=== PATIENT | female | born 1935 | race Caucasian/White ===

== ENCOUNTER 2016-12-30 14:07 | Outpatient (CLI) | payer MEDICARE, OTHER ==
[2016-12-30 14:33] LABS: #Basophils 0.2 thou/uL (0.0-0.2); #Eosinphils 0.2 thou/uL (0.0-0.7); #Lymphocytes 1.9 thou/uL (1.20-3.40); #Monocytes 0.8 thou/uL (0.11-0.59); #Neutrophils 7.5 thou/uL (1.40-6.50); %Basophils 1.4 % (0.0-1.0); %Eosinophils 1.6 % (0.0-10.0); %Monocytes 7.5 % (0.0-10.0); Hematocrit 41.5 % (36.0-47.0); White Blood Cell (WBC) Count 10.6 thou/uL (4.8-10.8)
[2016-12-30 14:52] LABS: ALT (SGPT) 16 U/L (0-55); AST (SGOT) 15 U/L (5-34); Alkaline Phosphatase 53 U/L (40-150); Anion Gap 12 mmol/L (10-20); BUN (Urea Nitrogen) 20 mg/dL (9.8-20.1); Bilirubin, Total 0.4 mg/dL (0.2-1.2); Calc. Creatinine Clearance 0 mL/min (70-130); Calcium 9.2 mg/dL (7.8-10.44); Carbon Dioxide 27 mmol/L (23-31); Chloride 102 mmol/L (98-107); Estimated GFR-MDRD 66; Globulin 2.4 g/dL (2.4-3.5); LDL Cholesterol, Calculated 112 mg/dL; Protein, Total 6.6 g/dL (5.8-8.1)
== END 2016-12-30 14:08 ==
LOC: HPCALD 14:07
PROVIDERS: ATTEND Family Medicine
DX: E78.00 Pure hypercholesterolemia, unspecified (principal); F41.8 Other specified anxiety disorders; I10 Essential (primary) hypertension; Z79.899 Other long term (current) drug therapy
CPT/HCPCS: 36415; 80053; 80061; 82607; 84443; 85025

== ENCOUNTER 2017-06-28 14:44 | Outpatient (CLI) | payer MEDICARE, OTHER ==
[2017-06-28 15:14] LABS: Bilirubin Negative (Negative); Blood, Urine Trace (Negative); Clarity Slightly Cloudy (Clear); Glucose, Urine (Dipstick) Negative (Negative); Leukocyte Moderate (Negative); Nitrite Negative (Negative); Protein, Urine (Dipstick) Negative (Neg-Trace); Urobilinogen 0.2 mg/dL (0.2-1.0); pH, Urine 6.5 (5.0-9.0)
[2017-06-28 15:24] LABS: Anion Gap 12 mmol/L (10-20); BUN (Urea Nitrogen) 14 mg/dL (9.8-20.1); Calc. Creatinine Clearance 0 mL/min (70-130); Calcium 9.9 mg/dL (7.8-10.44); Carbon Dioxide 31 mmol/L (23-31); Chloride 99 mmol/L (98-107); Estimated GFR-MDRD 62; Glucose 103 mg/dL (83-110); Potassium 3.7 mmol/L (3.5-5.1); Sodium 138 mmol/L (136-145)
[2017-06-28 15:40] LABS: Bacteria/HPF 1+ HPF (None Seen); RBC/HPF 0-3 HPF (0-3); Squamous Epithelial 0-3 HPF (0-3)
== END 2017-06-28 14:45 | disposition home or self-care (01) ==
LOC: BURLAB 14:44
PROVIDERS: ATTEND Urology
DX: N20.0 Calculus of kidney (principal)
CPT/HCPCS: 36415; 80048; 81001; 87077; 87086

== ENCOUNTER → 2017-08-25 | Emergency (ER) | payer MEDICARE, OTHER ==
[~2017-08-25] MED LIST: Acetaminophen 325 MG TAB ONE; Nitroglycerin 2% Ointment 1 INCH/1 GM Packet ONE
[2017-08-25 17:53] LABS: #Basophils 0.1 thou/uL (0.0-0.2); #Eosinphils 0.2 thou/uL (0.0-0.7); #Lymphocytes 1.5 thou/uL (1.20-3.40); #Monocytes 1.1 thou/uL (0.11-0.59); #Neutrophils 9.4 thou/uL (1.40-6.50); %Basophils 1.1 % (0.0-1.0); %Eosinophils 1.5 % (0.0-10.0); %Lymphocytes 12.3 % (21.0-51.0); %Monocytes 8.6 % (0.0-10.0); %Neutrophils 76.5 % (42.0-75.0); Hemoglobin 13.8 g/dL (12.0-16.0); Mean Corpuscular HGB CONC 32.4 g/dL (32.0-36.0); Mean Corpuscular Hemoglobin 32.4 pg (27.0-31.0); Mean Platelet Volume 8.3 fL (7.4-10.4); Platelet Count 293 thou/uL (130-400); RBC Distribution Width 11.8 % (11.5-14.5); Red Blood Cell (RBC) Count 4.25 mill/uL (4.20-5.40); White Blood Cell (WBC) Count 12.3 thou/uL (4.8-10.8)
[2017-08-25 17:58] LABS: INR-International Normal Ratio 1.1; Prothrombin Time 13.9 SEC (12.0-14.7)
[2017-08-25 18:07] LABS: ALT (SGPT) 19 U/L (8-55); AST (SGOT) 17 U/L (5-34); Albumin 4.1 g/dL (3.4-4.8); Alkaline Phosphatase 54 U/L (40-150); Anion Gap 14 mmol/L (10-20); BUN (Urea Nitrogen) 14 mg/dL (9.8-20.1); Bilirubin, Total 0.4 mg/dL (0.2-1.2); Calc. Creatinine Clearance 0 mL/min (70-130); Calcium 9.3 mg/dL (7.8-10.44); Carbon Dioxide 27 mmol/L (23-31); Chloride 102 mmol/L (98-107); Estimated GFR-MDRD 58; Globulin 2.4 g/dL (2.4-3.5); Glucose 110 mg/dL (83-110); Potassium 4.2 mmol/L (3.5-5.1); Protein, Total 6.5 g/dL (6.0-8.3); Sodium 139 mmol/L (136-145)
[2017-08-25 18:09] LABS: CKMB 1.4 ng/mL (0-6.6); Troponin I Less than 0.010 ng/mL (< 0.028)
[2017-08-25 20:47] LABS: Troponin I Less than 0.010 ng/mL (< 0.028)
--- NOTE | 2017-08-25 21:46 | RAD ---
AP PORTABLE CHEST: 08/25/2017 1743 HOURS COMPARISON: Study from 07/21/2017 done at [facility]. FINDINGS: The heart is normal in size. There is no congestive change or pleural effusion. The infiltrative c hanges in the right base have largely resolved. There may be some very minor residual. The left ricky ng is clear. Faint calcification is seen in the aortic arch. There is an ovoid density overlying t he right pulmonary artery. I cannot tell if it is a lymph node, part of the artery, or other pathol ogy. It is smooth. IMPRESSION: 1. No definite acute findings. 2. Ovoid density in the right hilum may be superimposition of multiple shadows. The area should be watched on future films. POS: HOME
== END ==
LOC: BURERS 17:19
DX: R07.2 Precordial pain (principal); J44.9 Chronic obstructive pulmonary disease, unspecified; I48.91 Unspecified atrial fibrillation; I10 Essential (primary) hypertension; F41.9 Anxiety disorder, unspecified; Z79.01 Long term (current) use of anticoagulants; Z79.52 Long term (current) use of systemic steroids; Z79.899 Other long term (current) drug therapy
CPT/HCPCS: 71010; 80053; 82553; 84484; 85025; 85610; 85730; 93005

== ENCOUNTER 2017-11-16 15:12 | Inpatient (IN) | payer MEDICARE, OTHER ==
[2017-11-16 16:18] VITALS: BMI 25.3
[2017-11-16] MEDS ORDERED: PHENOL PO PRN (17:07)
[2017-11-16] MEDS ORDERED: Polyethylene Glycol 3350 17 GM Packet PO PRN (17:07)
[2017-11-16] MEDS ORDERED: Nitroglycerin 0.4 MG TAB (25 Tab Bottle) SL PRN (17:07)
[2017-11-16] MEDS ORDERED: Loratadine 10 MG TAB PO PRN (17:07)
[2017-11-16] MEDS ORDERED: ALPRAZolam 0.5 MG TAB PO PRN (17:07)
[2017-11-16] MEDS ORDERED: Acetaminophen 325 MG TAB PO PRN (17:07)
[2017-11-16] MEDS ORDERED: Albuterol Sulfate 1.25 MG/3 ML NEB NEB PRN (17:07)
[2017-11-16] MEDS ORDERED: Albuterol Sulfate 2.5 mg/3 ml Neb NEB PRN (17:07)
[2017-11-16] MEDS: Mometasone/Formoterol 60 PUFF AER INH SCH (18:35)
[2017-11-16] MEDS: Apixaban 5 MG TAB PO SCH (20:34)
[2017-11-16] MEDS: Nystatin 500,000 UNITS/5 ML UDCUP PO SCH (20:34)
[2017-11-16] MEDS: Docusate 100 MG CAP PO SCH (20:34)
[2017-11-16] MEDS: guaiFENesin ER 600 MG TAB PO SCH (20:35)
[2017-11-16] MEDS: Flecainide 50 MG TAB PO SCH (20:35)
[2017-11-16] MEDS: VERAPAMIL HCL 120 MG PO SCH (21:00)
[2017-11-16] MEDS ORDERED: Famotidine 20 MG TAB PO SCH (21:00)
[2017-11-16] MEDS ORDERED: Non-Formulary Item 1 EACH (Fluticasone/Salmeterol [Advair Diskus 500/50] 1 INH) IH SCH (21:00)
[2017-11-16] MEDS ORDERED: VERAPAMIL HCL 240 MG PO SCH (21:00)
[2017-11-17] MEDS: Calcium Carbonate 500 MG ChewTAB PO PRN ×2 (00:22→23:57)
[2017-11-17 00:40] LABS: CKMB 1.1 ng/mL (0-6.6); Troponin I Less than 0.010 ng/mL (< 0.028)
[2017-11-17] MEDS: Mometasone/Formoterol 60 PUFF AER INH SCH ×2 (06:05→19:04)
[2017-11-17] MEDS ORDERED: Albuterol Sulfate 1.25 MG/3 ML NEB NEB PRN (07:45)
[2017-11-17] MEDS: Nystatin 500,000 UNITS/5 ML UDCUP PO SCH ×4 (08:25→21:11)
[2017-11-17] MEDS: Furosemide 40 MG TAB PO SCH (08:26)
[2017-11-17] MEDS: guaiFENesin ER 600 MG TAB PO SCH ×2 (08:26→21:09)
[2017-11-17] MEDS: Aspirin 81 mg Enteric Coated Tablet PO SCH (08:27)
[2017-11-17] MEDS: Saccharomyces boulardii 250 MG CAP PO SCH (08:27)
[2017-11-17] MEDS: Flecainide 50 MG TAB PO SCH ×2 (08:27→21:11)
[2017-11-17] MEDS: Atorvastatin Calcium 10 MG TAB PO SCH (08:28)
[2017-11-17] MEDS: Multivit, Therapeutic 1 TAB PO SCH (08:28)
[2017-11-17] MEDS: Apixaban 5 MG TAB PO SCH ×2 (08:28→21:10)
[2017-11-17] MEDS: Famotidine 20 MG TAB PO SCH (08:28)
[2017-11-17] MEDS: predniSONE 20 MG TAB PO SCH (08:29)
[2017-11-17] MEDS: Spironolactone 25 MG TAB PO SCH (08:29)
[2017-11-17] MEDS: Docusate 100 MG CAP PO SCH ×3 (08:29→21:36)
[2017-11-17] MEDS: VERAPAMIL HCL 120 MG PO SCH ×2 (08:29→21:34)
[2017-11-17] MEDS ORDERED: Polyethylene Glycol 3350 17 GM Packet PO PRN (08:30)
[2017-11-17] MEDS: FLUNISOLIDE EA NARE SCH ×2 (08:33→21:34)
[2017-11-17] MEDS: Calcium Carbonate + Vit D 1 TAB PO SCH ×2 (08:34→17:15)
[2017-11-17] MEDS: Acetaminophen 325 MG TAB PO PRN (09:36)
[2017-11-17] MEDS: ALPRAZolam 0.5 MG TAB PO PRN (09:37)
[2017-11-17] MEDS: Milk Of Magnesia 30 ML UDCUP PO PRN (11:16)
[2017-11-17] MEDS: Cepastat Lozenges 1 LOZ PO PRN (15:33)
[2017-11-17] MEDS ORDERED: Furosemide 40 MG TAB PO SCH (21:45)
[2017-11-18] MEDS: Mometasone/Formoterol 60 PUFF AER INH SCH ×2 (06:30→17:26)
[2017-11-18 06:31] LABS: Hemoglobin 12.4 g/dL (12.0-16.0); Platelet Count 266 thou/uL (130-400)
[2017-11-18] MEDS: ALPRAZolam 0.5 MG TAB PO PRN ×2 (06:40→20:57)
[2017-11-18] MEDS: Calcium Carbonate + Vit D 1 TAB PO SCH ×3 (09:00→17:23)
[2017-11-18] MEDS: predniSONE 20 MG TAB PO SCH (09:01)
[2017-11-18] MEDS: guaiFENesin ER 600 MG TAB PO SCH ×2 (09:02→20:56)
[2017-11-18] MEDS: Multivit, Therapeutic 1 TAB PO SCH (09:03)
[2017-11-18] MEDS: Saccharomyces boulardii 250 MG CAP PO SCH (09:03)
[2017-11-18] MEDS: Docusate 100 MG CAP PO SCH ×2 (09:03→20:58)
[2017-11-18] MEDS: Aspirin 81 mg Enteric Coated Tablet PO SCH (09:05)
[2017-11-18] MEDS: Apixaban 5 MG TAB PO SCH ×2 (09:05→20:57)
[2017-11-18] MEDS: Famotidine 20 MG TAB PO SCH (09:05)
[2017-11-18] MEDS: Furosemide 40 MG TAB PO SCH (09:05)
[2017-11-18] MEDS: Atorvastatin Calcium 10 MG TAB PO SCH (09:06)
[2017-11-18] MEDS: Spironolactone 25 MG TAB PO SCH (09:06)
[2017-11-18] MEDS: Flecainide 50 MG TAB PO SCH ×2 (09:07→20:56)
[2017-11-18] MEDS: Nystatin 500,000 UNITS/5 ML UDCUP PO SCH ×4 (09:08→20:55)
[2017-11-18] MEDS: FLUNISOLIDE EA NARE SCH ×2 (09:09→20:57)
[2017-11-18] MEDS: VERAPAMIL HCL 120 MG PO SCH ×2 (09:10→20:57)
[2017-11-18] MEDS: Cepastat Lozenges 1 LOZ PO PRN (09:14)
[2017-11-18] MEDS: Acetaminophen 325 MG TAB PO PRN ×2 (09:19→13:12)
[2017-11-18] MEDS ORDERED: Lidocaine Viscous Sol 2% 15 ml UD Cup ONE (17:20)
[2017-11-18] MEDS: Lidocaine Viscous Sol 2% 15 ml UD Cup SSW PRN (17:27)
[2017-11-19] MEDS: Milk Of Magnesia 30 ML UDCUP PO PRN (00:15)
[2017-11-19] MEDS: diphenhydrAMINE 25 MG CAP PO PRN (02:16)
[2017-11-19] MEDS: Acetaminophen 325 MG TAB PO PRN ×2 (02:16→09:20)
[2017-11-19] MEDS: Mometasone/Formoterol 60 PUFF AER INH SCH ×2 (06:16→18:08)
[2017-11-19] MEDS: Famotidine 20 MG TAB PO SCH (06:39)
[2017-11-19] MEDS: ALPRAZolam 0.5 MG TAB PO PRN (06:39)
[2017-11-19] MEDS: guaiFENesin ER 600 MG TAB PO SCH ×2 (09:06→21:39)
[2017-11-19] MEDS: Apixaban 5 MG TAB PO SCH ×2 (09:07→21:38)
[2017-11-19] MEDS: Spironolactone 25 MG TAB PO SCH (09:07)
[2017-11-19] MEDS: Aspirin 81 mg Enteric Coated Tablet PO SCH (09:07)
[2017-11-19] MEDS: Docusate 100 MG CAP PO SCH ×2 (09:07→21:38)
[2017-11-19] MEDS: Furosemide 40 MG TAB PO SCH (09:07)
[2017-11-19] MEDS: Atorvastatin Calcium 10 MG TAB PO SCH (09:07)
[2017-11-19] MEDS: Multivit, Therapeutic 1 TAB PO SCH (09:07)
[2017-11-19] MEDS: predniSONE 20 MG TAB PO SCH (09:07)
[2017-11-19] MEDS: Flecainide 50 MG TAB PO SCH ×2 (09:07→21:39)
[2017-11-19] MEDS: Saccharomyces boulardii 250 MG CAP PO SCH (09:09)
[2017-11-19] MEDS: Nystatin 500,000 UNITS/5 ML UDCUP PO SCH ×4 (09:09→21:39)
[2017-11-19] MEDS: FLUNISOLIDE EA NARE SCH ×2 (09:09→21:38)
[2017-11-19] MEDS: Calcium Carbonate + Vit D 1 TAB PO SCH ×2 (09:11→16:48)
[2017-11-19] MEDS: VERAPAMIL HCL 120 MG PO SCH ×2 (09:11→21:38)
[2017-11-19] MEDS ORDERED: Lidocaine Viscous Sol 2% 15 ml UD Cup ONE ×2 (12:49→18:12)
[2017-11-19] MEDS: Lidocaine Viscous Sol 2% 15 ml UD Cup SSW PRN ×2 (12:52→18:14)
[2017-11-20] MEDS: diphenhydrAMINE 25 MG CAP PO PRN (03:18)
[2017-11-20] MEDS: Acetaminophen 325 MG TAB PO PRN ×3 (03:18→21:11)
[2017-11-20 05:39] LABS: Platelet Count 225 thou/uL (130-400)
[2017-11-20] MEDS: Mometasone/Formoterol 60 PUFF AER INH SCH ×2 (06:37→18:03)
[2017-11-20] MEDS: ALPRAZolam 0.5 MG TAB PO PRN ×2 (06:37→22:55)
[2017-11-20] MEDS: Famotidine 20 MG TAB PO SCH (06:38)
[2017-11-20] MEDS: predniSONE 20 MG TAB PO SCH (09:09)
[2017-11-20] MEDS: Calcium Carbonate + Vit D 1 TAB PO SCH ×2 (09:09→15:24)
[2017-11-20] MEDS: Aspirin 81 mg Enteric Coated Tablet PO SCH (09:10)
[2017-11-20] MEDS: Atorvastatin Calcium 10 MG TAB PO SCH (09:10)
[2017-11-20] MEDS: Apixaban 5 MG TAB PO SCH ×2 (09:10→21:03)
[2017-11-20] MEDS: Docusate 100 MG CAP PO SCH ×2 (09:10→21:03)
[2017-11-20] MEDS: Furosemide 40 MG TAB PO SCH (09:10)
[2017-11-20] MEDS: Flecainide 50 MG TAB PO SCH ×2 (09:10→21:03)
[2017-11-20] MEDS: guaiFENesin ER 600 MG TAB PO SCH ×2 (09:10→21:02)
[2017-11-20] MEDS: Spironolactone 25 MG TAB PO SCH (09:10)
[2017-11-20] MEDS: Multivit, Therapeutic 1 TAB PO SCH (09:10)
[2017-11-20] MEDS: Saccharomyces boulardii 250 MG CAP PO SCH (09:10)
[2017-11-20] MEDS: VERAPAMIL HCL 120 MG PO SCH ×2 (09:11→21:01)
[2017-11-20] MEDS: FLUNISOLIDE EA NARE SCH ×2 (09:12→21:02)
[2017-11-20] MEDS: Nystatin 500,000 UNITS/5 ML UDCUP PO SCH ×4 (09:12→21:02)
[2017-11-20] MEDS ORDERED: Lidocaine Viscous Sol 2% 15 ml UD Cup ONE (22:53)
[2017-11-20] MEDS: Lidocaine Viscous Sol 2% 15 ml UD Cup SSW PRN (22:54)
[2017-11-21] MEDS: Calcium Carbonate 500 MG ChewTAB PO PRN (01:36)
[2017-11-21] MEDS: diphenhydrAMINE 25 MG CAP PO PRN (02:04)
[2017-11-21] MEDS: Mometasone/Formoterol 60 PUFF AER INH SCH (06:52)
[2017-11-21 07:06] VITALS: BP 135/60; TEMP 98.3
[2017-11-21] MEDS: Calcium Carbonate + Vit D 1 TAB PO SCH ×2 (08:29→18:06)
[2017-11-21] MEDS: predniSONE 20 MG TAB PO SCH (08:52)
[2017-11-21] MEDS: guaiFENesin ER 600 MG TAB PO SCH (08:53)
[2017-11-21] MEDS: Flecainide 50 MG TAB PO SCH (08:53)
[2017-11-21] MEDS: Multivit, Therapeutic 1 TAB PO SCH (08:53)
[2017-11-21] MEDS: Furosemide 40 MG TAB PO SCH (08:53)
[2017-11-21] MEDS: Docusate 100 MG CAP PO SCH (08:53)
[2017-11-21] MEDS: Apixaban 5 MG TAB PO SCH (08:53)
[2017-11-21] MEDS: Spironolactone 25 MG TAB PO SCH (08:54)
[2017-11-21] MEDS: Nystatin 500,000 UNITS/5 ML UDCUP PO SCH ×3 (08:54→18:06)
[2017-11-21] MEDS: Saccharomyces boulardii 250 MG CAP PO SCH (08:55)
[2017-11-21] MEDS: Acetaminophen 325 MG TAB PO PRN (08:55)
[2017-11-21] MEDS: VERAPAMIL HCL 120 MG PO SCH (08:56)
[2017-11-21] MEDS: FLUNISOLIDE EA NARE SCH (08:56)
[2017-11-21] MEDS: Aspirin 81 mg Enteric Coated Tablet PO SCH ×2 (10:09→11:58)
[2017-11-21] MEDS: Atorvastatin Calcium 10 MG TAB PO SCH ×2 (10:09→11:58)
[2017-11-21] MEDS: Famotidine 20 MG TAB PO SCH ×2 (10:09→11:44)
[2017-11-21] MEDS ORDERED: Lidocaine Viscous Sol 2% 15 ml UD Cup ONE (11:47)
[2017-11-21] MEDS: Lidocaine Viscous Sol 2% 15 ml UD Cup SSW PRN (11:49)
--- NOTE | 2017-11-21 13:42 | RAD ---
PORTABLE CHEST: Date: 11/21/17 An AP portable film at 1059 hours is compared with the 11/13/17 study. FINDINGS: The heart size is unchanged. Calcific changes are seen in the aortic arch as usual. There is no vascu lar congestion, edema, or pleural effusion. There is some accentuation of the basilar markings, but a ny changes since the 11/13/17 study are minimal. IMPRESSION: Minimal accentuation of basilar markings. Not dramatically different than on 11/13/17. POS: HOME
--- NOTE | 2017-11-22 16:10 | DIS ---
DATE OF ADMISSION: 11/16/2017 DATE OF DISCHARGE: 11/21/2017 ADMISSION DIAGNOSES: Chronic obstructive pulmonary disease exacerbation, physical deconditioning, hypertension, paroxysmal atrial fibrillation, anxiety, thrush, and edema. PROCEDURES: Chest x-ray on 11/21/2017 showed minimal accentuation of basilar markings, not dramatically different than on 11/13/2017. HOSPITAL COURSE: An 82-year-old female with oxygen dependent COPD, was initially admitted at [facility] in [place] secondary to exacerbation of her COPD secondary to influenza. The patient was successfully treated for this; however, during her stay, developed physical deconditioning and thus it was arranged for her to transfer out to [facility] for physical therapy and occupational therapy. Prior to her departure , she was evaluated by her assistant statistician, Dr. Luu, who had increased her daily prednisone with instructions for 40 mg p.o. daily x4 to 5 days, followed by 20 mg daily until her followup within 2-3 weeks. The patient's medications were continued as usual and as advised during her stay. Her physical conditioning improved and she satisfactorily met the goals set fourth by Physical Therapy and Occupational Therapy. Her respiratory status remained near her baseline during her stay. She was agreeable to setting up Home Health for continued care upon her discharge. DISPOSITION: The patient will discharge to her home with further care via [facility] and may follow up with myself and Dr. Luu as scheduled. DISCHARGE MEDICATIONS: One new medication is viscous lidocaine for oral pain and there has been an adjustment on her prednisone to 20 mg p.o. daily until she follows up with Dr. Luu. Her other usual medications will be continued, which include spironolactone 25 mg p.o. daily, Florastor 250 mg p.o. daily, MiraLax 17 grams p.o. daily p.r.n., verapamil 120 mg p.o. b.i.d., Nystatin swish and swallow, Nitrostat 0.4 mg sublingual every 5 minutes p.r.n., daily multivitamin, Advair 1 puff b.i.d., Lasix 40 mg p.o. daily, flecainide 75 mg p.o. b.i.d., calcium, vitamin D, Lipitor 10 mg p.o. at bedtime, aspirin 81 mg p.o. daily, Eliquis 5 mg p.o. b.i.d., Xanax 0.25 mg p.o. b.i.d. p.r.n., DuoNebs q.4 hours p.r.n. MTDD
== END 2017-11-21 17:30 | disposition home health service (06) | DRG 192 ==
LOC: BURMED 15:20
PROVIDERS: ADMIT Family Medicine; ATTEND Family Medicine
DX: J44.1 Chronic obstructive pulmonary disease with (acute) exacerbation (principal); I48.0 Paroxysmal atrial fibrillation; Z99.81 Dependence on supplemental oxygen; B37.9 Candidiasis, unspecified; F41.9 Anxiety disorder, unspecified; I10 Essential (primary) hypertension; G47.00 Insomnia, unspecified; K21.9 Gastro-esophageal reflux disease without esophagitis; R60.9 Edema, unspecified; Z87.891 Personal history of nicotine dependence; Z90.49 Acquired absence of other specified parts of digestive tract
CPT/HCPCS: 36415; 71045; 82553; 82565; 84484; 85014; 85018; 85049; 94664; G8978-GP-CJ; G8979-GP-CI; G8987-GO-CI; G8988-GO-CI; G8989-GO-CI; J7506; J7620

== ENCOUNTER 2017-12-06 13:43 | Inpatient (IN) | payer MEDICARE, OTHER ==
[2017-12-06] MEDS ORDERED: Calcium Carbonate 500 MG ChewTAB PO PRN (17:02)
[2017-12-06] MEDS ORDERED: Milk Of Magnesia 30 ML UDCUP PO PRN (17:02)
[2017-12-06] MEDS ORDERED: Loratadine 10 MG TAB PO PRN (17:02)
[2017-12-06] MEDS ORDERED: Cepastat Lozenges 1 LOZ PO PRN (17:02)
[2017-12-06] MEDS ORDERED: Nitroglycerin 0.4 MG TAB (25 Tab Bottle) SL PRN (17:02)
[2017-12-06] MEDS ORDERED: predniSONE 20 MG TAB PO SCH (17:30)
[2017-12-06] MEDS ORDERED: Furosemide 20 MG TAB PO SCH (17:30)
[2017-12-06 17:56] VITALS: BMI 26.3
[2017-12-06] MEDS: ALPRAZolam 0.5 MG TAB PO PRN (18:45)
[2017-12-06] MEDS: Mometasone/Formoterol 60 PUFF AER INH SCH ×2 (18:47→21:55)
[2017-12-06] MEDS ORDERED: Non-Formulary Item 1 EACH (Fluticasone/Salmeterol [Advair Diskus 500/50] 1 INH) IH SCH (21:00)
[2017-12-06] MEDS ORDERED: PHENOL PO PRN (21:00)
[2017-12-06] MEDS ORDERED: Lidocaine Viscous Sol 2% 15 ml UD Cup ONE (21:44)
[2017-12-06] MEDS: Apixaban 5 MG TAB PO SCH (21:51)
[2017-12-06] MEDS: Famotidine 20 MG TAB PO SCH (21:51)
[2017-12-06] MEDS: Flecainide 50 MG TAB PO SCH (21:52)
[2017-12-06] MEDS: guaiFENesin ER 600 MG TAB PO SCH (21:53)
[2017-12-06] MEDS: Nystatin 500,000 UNITS/5 ML UDCUP PO SCH (21:54)
[2017-12-06] MEDS: Albuterol Sulfate 1.25 MG/3 ML NEB NEB SCH (22:03)
[2017-12-06] MEDS ORDERED: Cefuroxime 500 MG TAB ONE (22:13)
[2017-12-06] MEDS: Cefuroxime 500 MG TAB PO SCH (22:15)
[2017-12-06] MEDS: VERAPAMIL HCL 240 MG PO SCH (22:17)
[2017-12-06] MEDS: FLUNISOLIDE EA NARE SCH (22:18)
[2017-12-07] MEDS: Albuterol Sulfate 1.25 MG/3 ML NEB NEB SCH ×6 (01:03→21:47)
[2017-12-07] MEDS: ALPRAZolam 0.5 MG TAB PO PRN ×2 (01:18→21:50)
[2017-12-07] MEDS: diphenhydrAMINE 25 MG CAP PO PRN (01:18)
[2017-12-07] MEDS: Acetaminophen 325 MG TAB PO PRN (01:20)
[2017-12-07] MEDS: Lidocaine Viscous Sol 2% 15 ml UD Cup SSW PRN (01:38)
[2017-12-07 05:11] LABS: Hemoglobin 10.7 g/dL (12.0-16.0); Platelet Count 581 thou/uL (130-400)
[2017-12-07] MEDS: Mometasone/Formoterol 60 PUFF AER INH SCH ×4 (05:34→21:39)
[2017-12-07] MEDS ORDERED: Non-Formulary Item 1 EACH (Ranitidine Hcl [Zantac 75] 75 MG) PO SCH (09:00)
[2017-12-07] MEDS: Aspirin 81 mg Enteric Coated Tablet PO SCH (09:38)
[2017-12-07] MEDS: predniSONE 20 MG TAB PO SCH (09:38)
[2017-12-07] MEDS: Spironolactone 25 MG TAB PO SCH (09:39)
[2017-12-07] MEDS: Calcium Carbonate + Vit D 1 TAB PO SCH ×2 (09:39→17:38)
[2017-12-07] MEDS: Cefuroxime 500 MG TAB PO SCH ×2 (09:40→21:36)
[2017-12-07] MEDS: Furosemide 40 MG TAB PO SCH (09:49)
[2017-12-07] MEDS: Flecainide 50 MG TAB PO SCH ×2 (09:49→21:34)
[2017-12-07] MEDS: Nystatin 500,000 UNITS/5 ML UDCUP PO SCH ×4 (09:49→21:34)
[2017-12-07] MEDS: guaiFENesin ER 600 MG TAB PO SCH ×2 (09:49→21:37)
[2017-12-07] MEDS: Multivit, Therapeutic 1 TAB PO SCH (09:50)
[2017-12-07] MEDS: Atorvastatin Calcium 10 MG TAB PO SCH (09:50)
[2017-12-07] MEDS: Apixaban 5 MG TAB PO SCH ×2 (09:50→21:34)
[2017-12-07] MEDS: Famotidine 20 MG TAB PO SCH ×2 (09:51→21:33)
[2017-12-07] MEDS: Saccharomyces boulardii 250 MG CAP PO SCH (09:51)
[2017-12-07] MEDS: FLUNISOLIDE EA NARE SCH ×2 (09:59→21:38)
[2017-12-07] MEDS ORDERED: Cefuroxime 500 MG TAB ONE (21:25)
[2017-12-07] MEDS: VERAPAMIL HCL 240 MG PO SCH (21:38)
[2017-12-07] MEDS ORDERED: Albuterol Sulfate 1.25 MG/3 ML NEB ONE (21:47)
[2017-12-08] MEDS: Acetaminophen 325 MG TAB PO PRN (00:52)
[2017-12-08] MEDS: diphenhydrAMINE 25 MG CAP PO PRN (00:52)
[2017-12-08] MEDS: Albuterol Sulfate 1.25 MG/3 ML NEB NEB SCH ×6 (00:55→21:01)
[2017-12-08] MEDS: Mometasone/Formoterol 60 PUFF AER INH SCH ×4 (05:59→20:47)
[2017-12-08] MEDS: Multivit, Therapeutic 1 TAB PO SCH (08:38)
[2017-12-08] MEDS: Famotidine 20 MG TAB PO SCH ×2 (08:38→20:45)
[2017-12-08] MEDS: Nystatin 500,000 UNITS/5 ML UDCUP PO SCH ×4 (08:38→20:44)
[2017-12-08] MEDS: Flecainide 50 MG TAB PO SCH ×2 (08:39→20:46)
[2017-12-08] MEDS: guaiFENesin ER 600 MG TAB PO SCH ×2 (08:39→20:45)
[2017-12-08] MEDS: Atorvastatin Calcium 10 MG TAB PO SCH (08:40)
[2017-12-08] MEDS: Aspirin 81 mg Enteric Coated Tablet PO SCH (08:40)
[2017-12-08] MEDS: Saccharomyces boulardii 250 MG CAP PO SCH (08:40)
[2017-12-08] MEDS: predniSONE 20 MG TAB PO SCH (08:40)
[2017-12-08] MEDS: Spironolactone 25 MG TAB PO SCH (08:41)
[2017-12-08] MEDS: Apixaban 5 MG TAB PO SCH ×2 (08:42→20:44)
[2017-12-08] MEDS: Calcium Carbonate + Vit D 1 TAB PO SCH ×2 (08:43→18:19)
[2017-12-08] MEDS: Furosemide 40 MG TAB PO SCH (08:43)
[2017-12-08] MEDS: FLUNISOLIDE EA NARE SCH ×2 (08:47→21:00)
[2017-12-08] MEDS: Cefuroxime 500 MG TAB PO SCH ×2 (08:51→21:11)
[2017-12-08] MEDS ORDERED: Cefuroxime 500 MG TAB ONE (09:19)
[2017-12-08] MEDS: VERAPAMIL HCL 240 MG PO SCH (20:58)
[2017-12-09] MEDS: Albuterol Sulfate 1.25 MG/3 ML NEB NEB SCH ×6 (00:25→20:52)
[2017-12-09] MEDS: diphenhydrAMINE 25 MG CAP PO PRN (00:28)
[2017-12-09] MEDS: ALPRAZolam 0.5 MG TAB PO PRN ×2 (00:29→11:59)
[2017-12-09] MEDS: Acetaminophen 325 MG TAB PO PRN ×2 (00:30→11:59)
[2017-12-09] MEDS: Mometasone/Formoterol 60 PUFF AER INH SCH ×4 (05:09→23:09)
[2017-12-09 07:09] LABS: Hemoglobin 10.3 g/dL (12.0-16.0); Platelet Count 433 thou/uL (130-400)
[2017-12-09] MEDS: Nystatin 500,000 UNITS/5 ML UDCUP PO SCH ×4 (09:12→20:46)
[2017-12-09] MEDS: guaiFENesin ER 600 MG TAB PO SCH ×2 (09:12→20:45)
[2017-12-09] MEDS: Famotidine 20 MG TAB PO SCH ×2 (09:13→20:42)
[2017-12-09] MEDS: Multivit, Therapeutic 1 TAB PO SCH (09:13)
[2017-12-09] MEDS: Flecainide 50 MG TAB PO SCH ×2 (09:14→20:42)
[2017-12-09] MEDS: Furosemide 40 MG TAB PO SCH (09:15)
[2017-12-09] MEDS: Aspirin 81 mg Enteric Coated Tablet PO SCH (09:15)
[2017-12-09] MEDS: Calcium Carbonate + Vit D 1 TAB PO SCH ×2 (09:15→18:27)
[2017-12-09] MEDS: Spironolactone 25 MG TAB PO SCH (09:16)
[2017-12-09] MEDS: predniSONE 20 MG TAB PO SCH (09:16)
[2017-12-09] MEDS: Saccharomyces boulardii 250 MG CAP PO SCH (09:16)
[2017-12-09] MEDS: Atorvastatin Calcium 10 MG TAB PO SCH (09:16)
[2017-12-09] MEDS: Apixaban 5 MG TAB PO SCH ×2 (09:16→20:46)
[2017-12-09] MEDS: FLUNISOLIDE EA NARE SCH ×2 (09:22→23:06)
[2017-12-09] MEDS: Cefuroxime 500 MG TAB PO SCH ×2 (09:31→20:44)
[2017-12-09] MEDS: VERAPAMIL HCL 240 MG PO SCH (23:07)
[2017-12-10] MEDS: Albuterol Sulfate 1.25 MG/3 ML NEB NEB SCH ×6 (01:48→20:27)
[2017-12-10] MEDS: Acetaminophen 325 MG TAB PO PRN ×2 (02:06→11:54)
[2017-12-10] MEDS: ALPRAZolam 0.5 MG TAB PO PRN ×2 (02:06→08:22)
[2017-12-10] MEDS: diphenhydrAMINE 25 MG CAP PO PRN (02:06)
[2017-12-10] MEDS: Mometasone/Formoterol 60 PUFF AER INH SCH ×4 (05:56→20:18)
[2017-12-10] MEDS: Famotidine 20 MG TAB PO SCH ×2 (08:27→20:23)
[2017-12-10] MEDS: Aspirin 81 mg Enteric Coated Tablet PO SCH (08:29)
[2017-12-10] MEDS: Multivit, Therapeutic 1 TAB PO SCH (08:29)
[2017-12-10] MEDS: Calcium Carbonate + Vit D 1 TAB PO SCH ×2 (08:29→17:10)
[2017-12-10] MEDS: Saccharomyces boulardii 250 MG CAP PO SCH (08:30)
[2017-12-10] MEDS: predniSONE 20 MG TAB PO SCH (08:34)
[2017-12-10] MEDS: Apixaban 5 MG TAB PO SCH ×2 (08:36→20:23)
[2017-12-10] MEDS: Spironolactone 25 MG TAB PO SCH (08:36)
[2017-12-10] MEDS: Furosemide 40 MG TAB PO SCH (08:36)
[2017-12-10] MEDS: Atorvastatin Calcium 10 MG TAB PO SCH (08:36)
[2017-12-10] MEDS: guaiFENesin ER 600 MG TAB PO SCH ×2 (08:36→20:23)
[2017-12-10] MEDS: Flecainide 50 MG TAB PO SCH ×2 (08:37→20:23)
[2017-12-10] MEDS: Cefuroxime 500 MG TAB PO SCH ×2 (08:38→20:24)
[2017-12-10] MEDS: Nystatin 500,000 UNITS/5 ML UDCUP PO SCH ×4 (08:40→20:22)
[2017-12-10] MEDS: FLUNISOLIDE EA NARE SCH ×2 (08:41→20:18)
[2017-12-10] MEDS: VERAPAMIL HCL 240 MG PO SCH (20:24)
[2017-12-10] MEDS ORDERED: Lidocaine Viscous Sol 2% 15 ml UD Cup ONE (20:55)
[2017-12-10] MEDS: Lidocaine Viscous Sol 2% 15 ml UD Cup SSW PRN (20:57)
[2017-12-11] MEDS: Albuterol Sulfate 1.25 MG/3 ML NEB NEB SCH ×6 (00:43→21:04)
[2017-12-11] MEDS: diphenhydrAMINE 25 MG CAP PO PRN (00:44)
[2017-12-11] MEDS: ALPRAZolam 0.5 MG TAB PO PRN ×2 (00:45→10:08)
[2017-12-11] MEDS: Acetaminophen 325 MG TAB PO PRN ×2 (00:45→11:17)
[2017-12-11] MEDS: Mometasone/Formoterol 60 PUFF AER INH SCH ×4 (05:52→20:54)
[2017-12-11 06:04] LABS: Hemoglobin 9.6 g/dL (12.0-16.0); Platelet Count 399 thou/uL (130-400)
[2017-12-11] MEDS: Cefuroxime 500 MG TAB PO SCH ×2 (09:30→20:59)
[2017-12-11] MEDS: Furosemide 40 MG TAB PO SCH (09:33)
[2017-12-11] MEDS: predniSONE 20 MG TAB PO SCH (09:34)
[2017-12-11] MEDS: Saccharomyces boulardii 250 MG CAP PO SCH (09:34)
[2017-12-11] MEDS: Nystatin 500,000 UNITS/5 ML UDCUP PO SCH ×4 (09:34→21:00)
[2017-12-11] MEDS: Multivit, Therapeutic 1 TAB PO SCH (09:35)
[2017-12-11] MEDS: guaiFENesin ER 600 MG TAB PO SCH ×2 (09:35→20:57)
[2017-12-11] MEDS: Spironolactone 25 MG TAB PO SCH (09:36)
[2017-12-11] MEDS: Atorvastatin Calcium 10 MG TAB PO SCH (09:36)
[2017-12-11] MEDS: Apixaban 5 MG TAB PO SCH ×2 (09:37→20:58)
[2017-12-11] MEDS: Aspirin 81 mg Enteric Coated Tablet PO SCH (09:37)
[2017-12-11] MEDS: Flecainide 50 MG TAB PO SCH ×2 (09:38→20:58)
[2017-12-11] MEDS: FLUNISOLIDE EA NARE SCH ×2 (09:40→21:00)
[2017-12-11] MEDS: Calcium Carbonate + Vit D 1 TAB PO SCH ×2 (09:40→17:14)
[2017-12-11] MEDS: Famotidine 20 MG TAB PO SCH ×2 (09:42→20:58)
[2017-12-11] MEDS: Docusate 100 MG CAP PO SCH (20:57)
[2017-12-11] MEDS: VERAPAMIL HCL 240 MG PO SCH (21:00)
[2017-12-12] MEDS: Albuterol Sulfate 1.25 MG/3 ML NEB NEB SCH ×6 (00:39→21:16)
[2017-12-12] MEDS: diphenhydrAMINE 25 MG CAP PO PRN (00:40)
[2017-12-12] MEDS: Acetaminophen 325 MG TAB PO PRN (00:40)
[2017-12-12] MEDS: ALPRAZolam 0.5 MG TAB PO PRN ×2 (00:40→10:29)
[2017-12-12] MEDS: Mometasone/Formoterol 60 PUFF AER INH SCH ×4 (05:54→21:06)
[2017-12-12] MEDS: Famotidine 20 MG TAB PO SCH ×2 (10:31→21:14)
[2017-12-12] MEDS: Saccharomyces boulardii 250 MG CAP PO SCH (10:48)
[2017-12-12] MEDS: Atorvastatin Calcium 10 MG TAB PO SCH (10:48)
[2017-12-12] MEDS: predniSONE 20 MG TAB PO SCH (10:49)
[2017-12-12] MEDS: Nystatin 500,000 UNITS/5 ML UDCUP PO SCH ×4 (10:49→21:11)
[2017-12-12] MEDS: Furosemide 40 MG TAB PO SCH (10:49)
[2017-12-12] MEDS: FLUNISOLIDE EA NARE SCH ×3 (10:50→21:10)
[2017-12-12] MEDS: Calcium Carbonate + Vit D 1 TAB PO SCH ×2 (10:51→17:38)
[2017-12-12] MEDS: Cefuroxime 500 MG TAB PO SCH ×2 (10:52→21:09)
[2017-12-12] MEDS: Apixaban 5 MG TAB PO SCH ×2 (10:52→21:15)
[2017-12-12] MEDS: Aspirin 81 mg Enteric Coated Tablet PO SCH (10:52)
[2017-12-12] MEDS: Multivit, Therapeutic 1 TAB PO SCH (10:53)
[2017-12-12] MEDS: Docusate 100 MG CAP PO SCH ×2 (10:53→21:12)
[2017-12-12] MEDS: Flecainide 50 MG TAB PO SCH ×2 (10:54→21:13)
[2017-12-12] MEDS: Spironolactone 25 MG TAB PO SCH (10:54)
[2017-12-12] MEDS: guaiFENesin ER 600 MG TAB PO SCH ×2 (10:55→21:12)
[2017-12-12] MEDS: VERAPAMIL HCL 240 MG PO SCH (21:10)
[2017-12-13] MEDS: Albuterol Sulfate 1.25 MG/3 ML NEB NEB SCH ×6 (01:22→20:50)
[2017-12-13] MEDS: Acetaminophen 325 MG TAB PO PRN ×2 (01:49→21:32)
[2017-12-13] MEDS: ALPRAZolam 0.5 MG TAB PO PRN ×3 (01:50→21:01)
[2017-12-13] MEDS: diphenhydrAMINE 25 MG CAP PO PRN ×2 (01:50→21:33)
[2017-12-13] MEDS: Mometasone/Formoterol 60 PUFF AER INH SCH ×3 (06:03→17:24)
[2017-12-13 06:43] LABS: Hemoglobin 9.2 g/dL (12.0-16.0); Platelet Count 368 thou/uL (130-400)
--- NOTE | 2017-12-13 07:44 | RAD ---
CHEST 2 VIEWS: Date: 12/13/17 Comparison is made with the 11/30/17 study. FINDINGS: There is still infiltrate in the right upper lobe and the lingula. A small amount of infiltrate is se en in the right base. While it has changed over time slightly, the changes are not dramatic. In gener al, I would say there is a little more infiltrate in the right lower lobe and the base of the right u pper lobe than before. Lingular findings are about the same. The left upper lobe is otherwise clear. There are no effusions or congestive changes. The heart size is within normal limits. Calcification i s seen in the aortic arch. IMPRESSION: Infiltrative findings in the right upper and right lower lobes that may be slightly more than in [place]. The changes over time are slight, however. POS: HOME
[2017-12-13 09:56] LABS: Hemoglobin 9.2 g/dL (12.0-16.0); Mean Corpuscular HGB CONC 33.8 g/dL (32.0-36.0); Mean Corpuscular Hemoglobin 31.5 pg (27.0-31.0); Mean Platelet Volume 5.7 fL (7.4-10.4); Platelet Count 368 thou/uL (130-400); Red Blood Cell (RBC) Count 2.91 mill/uL (4.20-5.40)
[2017-12-13 11:13] LABS: Band 4 % (5-11); Eosinophils 1 % (0-10); Lymphocytes 3 % (21-51); MDiff Complete? YES; Neutrophil 92 % (42-75); PLT Morphology Comment Appears Adequate; RBC Morphology Normal
[2017-12-13] MEDS: Calcium Carbonate + Vit D 1 TAB PO SCH ×2 (11:18→17:23)
[2017-12-13] MEDS: Famotidine 20 MG TAB PO SCH ×2 (11:19→20:57)
[2017-12-13] MEDS: Spironolactone 25 MG TAB PO SCH (11:20)
[2017-12-13] MEDS: Flecainide 50 MG TAB PO SCH ×2 (11:20→20:53)
[2017-12-13] MEDS: Multivit, Therapeutic 1 TAB PO SCH (11:20)
[2017-12-13] MEDS: predniSONE 20 MG TAB PO SCH (11:22)
[2017-12-13] MEDS: Saccharomyces boulardii 250 MG CAP PO SCH (11:22)
[2017-12-13] MEDS: guaiFENesin ER 600 MG TAB PO SCH ×2 (11:22→20:54)
[2017-12-13] MEDS: Aspirin 81 mg Enteric Coated Tablet PO SCH (11:23)
[2017-12-13] MEDS: Docusate 100 MG CAP PO SCH ×2 (11:23→20:55)
[2017-12-13] MEDS: Apixaban 5 MG TAB PO SCH ×2 (11:23→20:58)
[2017-12-13] MEDS: Furosemide 40 MG TAB PO SCH (11:24)
[2017-12-13] MEDS: Cefuroxime 500 MG TAB PO SCH ×2 (11:24→20:59)
[2017-12-13] MEDS: Atorvastatin Calcium 10 MG TAB PO SCH (11:25)
[2017-12-13] MEDS: FLUNISOLIDE EA NARE SCH ×2 (11:28→21:05)
[2017-12-13] MEDS: Nystatin 500,000 UNITS/5 ML UDCUP PO SCH ×4 (11:28→21:02)
[2017-12-13] MEDS ORDERED: Cefuroxime 500 MG TAB ONE (20:35)
[2017-12-13] MEDS: valACYclovir 500 MG TAB PO SCH (20:45)
[2017-12-13] MEDS ORDERED: Doxycycline Hyclate 100 MG TAB PO SCH (21:00)
[2017-12-13] MEDS: VERAPAMIL HCL 240 MG PO SCH (21:04)
[2017-12-14] MEDS: Albuterol Sulfate 1.25 MG/3 ML NEB NEB SCH ×3 (01:28→08:51)
[2017-12-14 05:48] VITALS: BP 151/65; TEMP 97.7
[2017-12-14 05:52] LABS: #Basophils 0.1 thou/uL (0.0-0.2); #Lymphocytes 1.5 thou/uL (1.20-3.40); #Monocytes 1.2 thou/uL (0.11-0.59); #Neutrophils 21.4 thou/uL (1.40-6.50); %Basophils 0.6 % (0.0-1.0); %Eosinophils 0.2 % (0.0-10.0); %Lymphocytes 6.2 % (21.0-51.0); %Monocytes 4.8 % (0.0-10.0); %Neutrophils 88.3 % (42.0-75.0); Hemoglobin 9.6 g/dL (12.0-16.0); Mean Corpuscular HGB CONC 35.1 g/dL (32.0-36.0); Mean Corpuscular Hemoglobin 32.9 pg (27.0-31.0); Mean Corpuscular Volume 93.7 fl (81.0-99.0); Mean Platelet Volume 6.2 fL (7.4-10.4); Platelet Count 382 thou/uL (130-400); RBC Distribution Width 11.8 % (11.5-14.5); Red Blood Cell (RBC) Count 2.93 mill/uL (4.20-5.40); White Blood Cell (WBC) Count 24.2 thou/uL (4.8-10.8)
[2017-12-14 06:13] LABS: ALT (SGPT) 55 U/L (8-55); AST (SGOT) 27 U/L (5-34); Albumin 2.7 g/dL (3.4-4.8); Alkaline Phosphatase 61 U/L (40-150); Anion Gap 15 mmol/L (10-20); BUN (Urea Nitrogen) 23 mg/dL (9.8-20.1); Bilirubin, Total 0.2 mg/dL (0.2-1.2); Calc. Creatinine Clearance 71 mL/min (70-130); Calcium 8.7 mg/dL (7.8-10.44); Carbon Dioxide 26 mmol/L (23-31); Chloride 103 mmol/L (98-107); Estimated GFR-MDRD 78; Globulin 2.1 g/dL (2.4-3.5); Glucose 92 mg/dL (83-110); Potassium 4.6 mmol/L (3.5-5.1); Protein, Total 4.8 g/dL (6.0-8.3); Sodium 139 mmol/L (136-145)
[2017-12-14] MEDS: Mometasone/Formoterol 60 PUFF AER INH SCH (06:42)
--- NOTE | 2017-12-14 08:08 | DIS ---
DATE OF ADMISSION: 12/06/2017 DATE OF DISCHARGE: 12/14/2017 DISCHARGE DIAGNOSES: Pneumonia secondary to gram positive cocci, chronic obstructive pulmonary disease exacerbation, atrial fibrillation, hypertension, anxiety, dependent edema, and physical deconditioning. PROCEDURES: Chest x-ray on 12/13/2017 showed infiltrative findings on the right upper and right lower lobes that may be slightly more than in November, changes over time slight. HOSPITAL COURSE: An 82-year-old female with chronic COPD with frequent exacerbations, who initially presented to [facility] with worsening respiratory status and was subsequently found to have pneumonia of the right upper lobe felt to be healthcare associated. She was subsequently continued on her usual medications of nebulized treatments, prednisone, and supplemental oxygen and then was started on a course of Ceftin, which she is to complete through 12/16/2017. As her respiratory status improved to her baseline , she was transitioned to our facility to participate with physical therapy and occupational therapy secondary to her physical deconditioning. While here, she had no significant setbacks. She remained afebrile and was able to meet the goals set forth by therapy to enable her to return to her home setting. Her labs were followed as well as her chest x-ray. These results were reviewed with Dr. Luu and he is familiar with this patient's respiratory condition. At this time, the patient, Dr. Luu and I feel she is appropriate for discharge to her home setting with a few more days of antibiotics and resumption of her usual medications including 20 mg p.o. daily prednisone until she is able to follow up with Dr. Luu in 2 weeks as advised. DISPOSITION: The patient will be discharged to her home setting today and will have further follow up with [facility]. FOLLOWUP: She may follow up with myself in the clinic next week and Dr. Luu in the next couple of weeks. DISCHARGE MEDICATIONS: Ceftin 250 mg p.o. b.i.d. x3 days, 20 mg prednisone p.o. daily until follow up with Dr. Luu in 2 weeks, Eliquis 5 mg p.o. b.i.d., Aldactone 25 mg p.o. daily, albuterol p.r.n., aspirin 81 mg p.o. daily, nitroglycerin sublingual p.r.n. chest pain, flecainide 75 mg p.o. b.i.d., Pravastatin 80 mg p.o. at bedtime, Advair 1 puff b.i.d., verapamil 240 mg p.o. daily, Florastor 250 mg p.o. daily, ranitidine 75 mg p.o. daily, and alprazolam 0.25 mg p.o. q.i.d. p.r.n. MTDD
[2017-12-14] MEDS: ALPRAZolam 0.5 MG TAB PO PRN (08:46)
[2017-12-14] MEDS: Calcium Carbonate + Vit D 1 TAB PO SCH (08:47)
[2017-12-14] MEDS: predniSONE 20 MG TAB PO SCH (08:48)
[2017-12-14] MEDS: guaiFENesin ER 600 MG TAB PO SCH (08:48)
[2017-12-14] MEDS: Famotidine 20 MG TAB PO SCH (08:48)
[2017-12-14] MEDS: Multivit, Therapeutic 1 TAB PO SCH (08:48)
[2017-12-14] MEDS: Docusate 100 MG CAP PO SCH (08:49)
[2017-12-14] MEDS: Aspirin 81 mg Enteric Coated Tablet PO SCH (08:49)
[2017-12-14] MEDS: Atorvastatin Calcium 10 MG TAB PO SCH (08:49)
[2017-12-14] MEDS: Furosemide 40 MG TAB PO SCH (08:49)
[2017-12-14] MEDS: Apixaban 5 MG TAB PO SCH (08:49)
[2017-12-14] MEDS: Flecainide 50 MG TAB PO SCH (08:49)
[2017-12-14] MEDS: Spironolactone 25 MG TAB PO SCH (08:50)
[2017-12-14] MEDS: Nystatin 500,000 UNITS/5 ML UDCUP PO SCH (08:51)
[2017-12-14] MEDS: FLUNISOLIDE EA NARE SCH ×2 (08:52→08:53)
[2017-12-14] MEDS: Cefuroxime 500 MG TAB PO SCH (08:52)
[2017-12-14] MEDS: Saccharomyces boulardii 250 MG CAP PO SCH (08:53)
[2017-12-14] MEDS ORDERED: valACYclovir 500 MG TAB ONE (09:04)
[2017-12-14] MEDS: valACYclovir 500 MG TAB PO SCH (09:06)
[2017-12-14] MEDS ORDERED: Lidocaine Viscous Sol 2% 15 ml UD Cup ONE (09:25)
== END 2017-12-14 12:45 | disposition home health service (06) | DRG 947 ==
LOC: BURMED 14:50
PROVIDERS: ADMIT Family Medicine; ATTEND Family Medicine
DX: R53.81 Other malaise (principal); J15.9 Unspecified bacterial pneumonia; J44.0 Chronic obstructive pulmonary disease with (acute) lower respiratory infection; I48.0 Paroxysmal atrial fibrillation; J44.1 Chronic obstructive pulmonary disease with (acute) exacerbation; F41.9 Anxiety disorder, unspecified; I10 Essential (primary) hypertension; I25.10 Atherosclerotic heart disease of native coronary artery without angina pectoris; Z87.891 Personal history of nicotine dependence
CPT/HCPCS: 36415; 71046; 80053; 82565; 85014; 85018; 85025; 85049; 94640; 94664; G8978-GP-CM; G8979-GP-CJ; G8987-GO-CJ; G8988-GO-CI; J7506; J7620

== ENCOUNTER 2018-03-05 13:41 | Inpatient (IN) | payer MEDICARE, OTHER ==
[2018-03-05 14:16] LABS: #Basophils 0.2 thou/uL (0.0-0.2); #Eosinphils 0.3 thou/uL (0.0-0.7); #Lymphocytes 0.6 thou/uL (1.20-3.40); #Monocytes 0.8 thou/uL (0.11-0.59); #Neutrophils 12.8 thou/uL (1.40-6.50); %Basophils 1.2 % (0.0-1.0); %Eosinophils 2.2 % (0.0-10.0); %Lymphocytes 3.9 % (21.0-51.0); %Monocytes 5.5 % (0.0-10.0); %Neutrophils 87.1 % (42.0-75.0); Hemoglobin 10.8 g/dL (12.0-16.0); Mean Corpuscular HGB CONC 32.8 g/dL (32.0-36.0); Mean Corpuscular Volume 88.5 fl (81.0-99.0); Mean Platelet Volume 7.3 fL (7.4-10.4); Platelet Count 397 thou/uL (130-400); RBC Distribution Width 13.9 % (11.5-14.5); Red Blood Cell (RBC) Count 3.71 mill/uL (4.20-5.40); White Blood Cell (WBC) Count 14.7 thou/uL (4.8-10.8)
[2018-03-05] MEDS ORDERED: methylPREDNISolone Sod Succ/PF 125 MG/2 ML VIAL ONE (14:24)
[2018-03-05 14:28] LABS: ALT (SGPT) 17 U/L (8-55); AST (SGOT) 17 U/L (5-34); Albumin 4.4 g/dL (3.4-4.8); Alkaline Phosphatase 67 U/L (40-150); Anion Gap 16 mmol/L (10-20); BUN (Urea Nitrogen) 12 mg/dL (9.8-20.1); Bilirubin, Total 0.3 mg/dL (0.2-1.2); Calc. Creatinine Clearance 0 mL/min (70-130); Calcium 9.8 mg/dL (7.8-10.44); Carbon Dioxide 25 mmol/L (23-31); Chloride 101 mmol/L (98-107); Estimated GFR-MDRD 53; Glucose 145 mg/dL (83-110); Potassium 3.9 mmol/L (3.5-5.1); Protein, Total 7.4 g/dL (6.0-8.3); Sodium 138 mmol/L (136-145)
[2018-03-05 14:32] LABS: CKMB 1.2 ng/mL (0-6.6); Troponin I Less than 0.010 ng/mL (< 0.028)
--- NOTE | 2018-03-05 15:26 | RAD ---
PORTABLE CHEST: Date: 03-05-18 Provided Clinical History: COPD. FINDINGS: Comparison 02-21-18. Cardiac and mediastinal silhouette is unchanged in appearance. Parenchymal opacit y at the right lung apex persists. Chronic obstructive changes are redemonstrated. IMPRESSION: Stable radiographic appearance of the chest. Persistent right upper lung zone parenchymal opacity. POS: H
[2018-03-05] MEDS ORDERED: Ondansetron ODT 4 MG TAB SL PRN (16:56)
[2018-03-05] MEDS ORDERED: Acetaminophen 325 MG TAB PO PRN (16:56)
[2018-03-05] MEDS ORDERED: Ondansetron HCl/PF 4 MG/2 ML Vial IVP PRN (16:56)
[2018-03-05 17:16] VITALS: BMI 24.3
[2018-03-05] MEDS ORDERED: Calcium Carbonate 500 MG ChewTAB PO PRN (19:00)
[2018-03-05] MEDS ORDERED: diphenhydrAMINE 25 MG CAP PO PRN (19:00)
[2018-03-05] MEDS ORDERED: Loratadine 10 MG TAB PO PRN (19:00)
[2018-03-05] MEDS ORDERED: Milk Of Magnesia 30 ML UDCUP PO PRN (19:00)
[2018-03-05] MEDS ORDERED: ALPRAZolam 0.5 MG TAB PO PRN (19:00)
[2018-03-05] MEDS: Mometasone/Formoterol 60 PUFF AER INH SCH (20:51)
[2018-03-05] MEDS: guaiFENesin ER 600 MG TAB PO SCH (20:53)
[2018-03-05] MEDS: Apixaban 5 MG TAB PO SCH (20:54)
[2018-03-05] MEDS: Flecainide 50 MG TAB PO SCH (20:54)
[2018-03-05] MEDS: Benzonatate 100 MG CAP PO SCH (20:54)
[2018-03-05] MEDS ORDERED: Non-Formulary Item 1 EACH (Budesonide-Formoterol [Symbicort 160-4.5] 2 PUFF) INH SCH (21:00)
[2018-03-05] MEDS: VERAPAMIL 120 MG PO SCH (23:27)
[2018-03-06] MEDS: Benzonatate 100 MG CAP PO SCH ×3 (05:31→21:51)
[2018-03-06] MEDS: Mometasone/Formoterol 60 PUFF AER INH SCH ×2 (05:58→20:41)
[2018-03-06 07:02] LABS: #Lymphocytes 0.4 thou/uL (1.20-3.40); #Monocytes 0.2 thou/uL (0.11-0.59); #Neutrophils 7.8 thou/uL (1.40-6.50); %Basophils 0.2 % (0.0-1.0); %Lymphocytes 4.7 % (21.0-51.0); %Monocytes 2.9 % (0.0-10.0); %Neutrophils 92.3 % (42.0-75.0); Mean Corpuscular HGB CONC 33.8 g/dL (32.0-36.0); Mean Corpuscular Hemoglobin 29.7 pg (27.0-31.0); Mean Corpuscular Volume 87.9 fl (81.0-99.0); Mean Platelet Volume 7.3 fL (7.4-10.4); Platelet Count 321 thou/uL (130-400); RBC Distribution Width 14.1 % (11.5-14.5); Red Blood Cell (RBC) Count 3.02 mill/uL (4.20-5.40); White Blood Cell (WBC) Count 8.4 thou/uL (4.8-10.8)
[2018-03-06] MEDS ORDERED: predniSONE 20 MG TAB PO SCH (08:00)
[2018-03-06] MEDS ORDERED: Calcium Carbonate + Vit D 1 TAB PO SCH (08:00)
--- NOTE | 2018-03-06 08:34 | HP ---
DATE OF ADMISSION: 03/05/2018 CHIEF COMPLAINT: COPD exacerbation. HISTORY OF PRESENT ILLNESS: An 83-year-old female with advanced chronic obstructive pulmonary disease, oxygen dependent, followed by Dr. Luu presented to [facility] Department yesterday afternoon with complaints of worsening respiratory status, including a productive cough and low grade fever with temperature up to between 99 and 100 degrees as of yesterday. She reports using her usual respiratory medications at home including nebulized treatments, chronic prednisone and oxygen without any significant relief which prompted her arrival. She notably had a leukocytosis with a left shift and a chest x-ray revealing stable radiographic appearance of the chest with a persistent right upper lung zone parenchymal opacity. The patient reports last seeing Dr. Luu within the last 2-3 weeks and states that her chronic right upper lung changes had been improving per imaging. She is on chronic prednisone therapy and is currently on 20 mg p.o. daily. Due to her labs, x-ray and physical exam findings she has been admitted for COPD exacerbation and further care. PAST MEDICAL HISTORY: COPD, oxygen dependent, paroxysmal atrial fibrillation, hypertension, anxiety, coronary artery disease, hyperlipidemia. PAST SURGICAL HISTORY: Cardiac catheterization in 07/2017. Cardiac ablation x2 , cholecystectomy, hemorrhoidectomy, left knee arthroscopy. ALLERGIES: CODEINE, LISINOPRIL, NIACIN, SULFA. FAMILY HISTORY: Noncontributory. SOCIAL HISTORY: She lives locally with her daughter. Denies smoking, ETOH, or illicit drug use. CURRENT MEDICATIONS: Albuterol nebs q.8. p.r.n., alprazolam 0.25 mg p.o. b.i.d. p.r.n., Eliquis 5 mg p.o. b.i.d., aspirin 81 mg p.o. daily, atorvastatin 10 mg p.o. at bedtime, Tessalon Perles 200 mg p.o. q.8 hours p.r.n., calcium carbonate p.o. b.i.d., Benadryl 25 mg p.o. at bedtime p.r.n., famotidine 20 mg p.o. daily, flecainide 75 mg p.o. b.i.d., DuoNeb, Dulera 2 puffs b.i.d., prednisone 20 mg p.o. daily, spironolactone 25 mg p.o. daily, verapamil 120 mg p.o. b.i.d. REVIEW OF SYSTEMS: GENERAL: Complains of low grade fever. ENT: Denies sore throat, nasal drainage or congestion. CARDIOVASCULAR: Denies chest pain or palpitations. RESPIRATORY: Complains of cough, shortness of breath. GASTROINTESTINAL: Denies abdominal pain, nausea, vomiting, diarrhea or constipation. GENITOURINARY: Denies dysuria or hematuria. MUSCULOSKELETAL: Denies joint pain. DERMATOLOGY: Denies rash. NEUROLOGIC: Denies headache. LABORATORY: Initial white blood cell count 14.7. This is decreased to 8.4, H& H is 9.0 and 26.6, platelets 321. Sodium 137, potassium 4.4, BUN 15, creatinine 0.82, glucose 171, normal LFTs. Chest x-ray; stable radiographic appearance of the chest, persistent right upper lung zone, parenchymal opacity. PHYSICAL EXAMINATION: VITAL SIGNS: Temperature is 98.1, pulse is 87, respiratory rate 24, oxygen is 96% on 3 liters, blood pressure is 135/59. GENERAL: She is alert and oriented, in no acute distress. HEENT: Normocephalic and atraumatic. Pupils equal, round, reactive to light. Extraocular muscles are intact bilaterally. Moist mucous membranes. NECK: Supple, no lymphadenopathy, no JVD. CARDIOVASCULAR: Regular rate and rhythm, normal S1, S2. No murmurs, rubs or gallops. RESPIRATORY: Expiratory wheezes with coarse breath sounds, scattered rhonchi. No active respiratory distress. ABDOMEN: Soft, nontender to palpation. Normal bowel sounds. EXTREMITIES: No clubbing, cyanosis or edema. DERMATOLOGY: No rashes. NEUROLOGIC: Cranial nerves II-XII are grossly intact. Mildly anxious. IMPRESSION AND PLAN: 1. Chronic obstructive pulmonary disease exacerbation. We will continue the patient on supplemental oxygen to keep sats greater than 92%. We will continue the patient on her COPD medications with scheduled nebs and her daily prednisone. 2. Leukocytosis. This has resolved from yesterday's reading. We will follow up the chest x-ray. She is currently afebrile. We will follow up blood cultures. 3. Paroxysmal atrial fibrillation. The patient is rate controlled. We will continue her flecainide and verapamil. 4. Hypertension. The patient is hemodynamically stable. We will resume her usual blood pressure medications. 5. Anxiety. The patient will have Xanax p.r.n. 6. Physical deconditioning. We will consult physical therapy and occupational therapy for evaluation. 7. Prophylaxis. The patient is on a H2 huber and Eliquis. We will resume these. MTDD
[2018-03-06] MEDS ORDERED: Multivit, Therapeutic 1 TAB PO SCH (09:00)
--- NOTE | 2018-03-06 09:10 | RAD ---
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 HISTORY: Followup exam. Cough and pneumonia. FINDINGS: Persistent opacification of the right upper lobe and right lung base. Stable hyperinflation. Stable configuration of the cardiac silhouette. Atherosclerosis of the aorta is identified. IMPRESSION: Persistent opacification of the lung parenchyma. Given the overall chronic opacification of the righ t upper lobe, a component of scarring/atelectasis is favored. Correlation is made with CT from does demonstrate consolidation with air bronchograms. Given longstanding opacification, better in terrogation with a chest CT is recommended. Note, on previous chest CT were nodular opacities presen t. CODE T POS: OFF
[2018-03-06] MEDS: guaiFENesin ER 600 MG TAB PO SCH ×2 (09:38→20:40)
[2018-03-06] MEDS: Flecainide 50 MG TAB PO SCH ×2 (09:38→20:40)
[2018-03-06] MEDS: Apixaban 5 MG TAB PO SCH ×2 (09:38→20:40)
[2018-03-06] MEDS: Aspirin 81 mg Enteric Coated Tablet PO SCH (09:42)
[2018-03-06] MEDS: Famotidine 20 MG TAB PO SCH (09:44)
[2018-03-06] MEDS: Atorvastatin Calcium 10 MG TAB PO SCH (09:44)
[2018-03-06] MEDS: Spironolactone 25 MG TAB PO SCH (09:45)
[2018-03-06] MEDS: Saccharomyces boulardii 250 MG CAP PO SCH (09:46)
[2018-03-06] MEDS: VERAPAMIL 120 MG PO SCH ×2 (09:47→20:44)
[2018-03-06] MEDS: Acetaminophen 325 MG TAB PO PRN ×2 (11:19→16:44)
[2018-03-06] MEDS ORDERED: Fluticasone Propionate Nasal Spray 16 gm Bottle NASAL SCH (13:45)
[2018-03-06] MEDS: Fluticasone Propionate Nasal Spray 16 gm Bottle NASAL SCH (20:43)
[2018-03-06] MEDS: diphenhydrAMINE 25 MG CAP PO PRN (21:51)
[2018-03-06] MEDS: ALPRAZolam 0.5 MG TAB PO PRN (21:51)
[2018-03-07] MEDS: Acetaminophen 325 MG TAB PO PRN (04:25)
[2018-03-07] MEDS: Benzonatate 100 MG CAP PO SCH ×3 (04:48→22:01)
[2018-03-07 05:51] LABS: #Lymphocytes 1.1 thou/uL (1.20-3.40); #Monocytes 1.1 thou/uL (0.11-0.59); #Neutrophils 11.4 thou/uL (1.40-6.50); %Basophils 0.3 % (0.0-1.0); %Eosinophils 0.2 % (0.0-10.0); %Lymphocytes 8.3 % (21.0-51.0); %Monocytes 7.7 % (0.0-10.0); %Neutrophils 83.5 % (42.0-75.0); Hemoglobin 8.9 g/dL (12.0-16.0); Mean Corpuscular HGB CONC 32.1 g/dL (32.0-36.0); Mean Corpuscular Hemoglobin 28.5 pg (27.0-31.0); Mean Corpuscular Volume 88.8 fl (81.0-99.0); Mean Platelet Volume 7.2 fL (7.4-10.4); Platelet Count 332 thou/uL (130-400); RBC Distribution Width 14.2 % (11.5-14.5); White Blood Cell (WBC) Count 13.7 thou/uL (4.8-10.8)
[2018-03-07 06:05] LABS: ALT (SGPT) 14 U/L (8-55); AST (SGOT) 14 U/L (5-34); Albumin 3.7 g/dL (3.4-4.8); Alkaline Phosphatase 52 U/L (40-150); Anion Gap 15 mmol/L (10-20); BUN (Urea Nitrogen) 19 mg/dL (9.8-20.1); Bilirubin, Total Less than 0.2 mg/dL (0.2-1.2); Calc. Creatinine Clearance 51 mL/min (70-130); Calcium 8.9 mg/dL (7.8-10.44); Carbon Dioxide 28 mmol/L (23-31); Chloride 102 mmol/L (98-107); Estimated GFR-MDRD 64; Globulin 2.3 g/dL (2.4-3.5); Glucose 103 mg/dL (83-110); Potassium 4.7 mmol/L (3.5-5.1); Sodium 140 mmol/L (136-145)
[2018-03-07] MEDS ORDERED: Nitroglycerin 0.4 MG TAB (25 Tab Bottle) ONE (06:39)
[2018-03-07] MEDS ORDERED: Guaifenesin DM 100-10/5 ML UDCUP PO PRN (07:30)
[2018-03-07] MEDS: Mometasone/Formoterol 60 PUFF AER INH SCH ×2 (08:57→18:31)
[2018-03-07] MEDS: Saccharomyces boulardii 250 MG CAP PO SCH (09:00)
[2018-03-07] MEDS: Aspirin 81 mg Enteric Coated Tablet PO SCH (09:01)
[2018-03-07] MEDS: Atorvastatin Calcium 10 MG TAB PO SCH (09:01)
[2018-03-07] MEDS: guaiFENesin ER 600 MG TAB PO SCH ×2 (09:01→20:58)
[2018-03-07] MEDS: Flecainide 50 MG TAB PO SCH ×2 (09:02→20:58)
[2018-03-07] MEDS: Apixaban 5 MG TAB PO SCH ×2 (09:02→21:00)
[2018-03-07] MEDS: Famotidine 20 MG TAB PO SCH (09:03)
[2018-03-07] MEDS: Spironolactone 25 MG TAB PO SCH (09:04)
[2018-03-07] MEDS: VERAPAMIL 120 MG PO SCH ×2 (09:04→21:00)
[2018-03-07] MEDS: Fluticasone Propionate Nasal Spray 16 gm Bottle NASAL SCH ×2 (09:05→20:58)
--- NOTE | 2018-03-07 09:12 | RAD ---
PA AND LATERAL CHEST: Date: 03/07/18 INDICATION: Follow-up chest radiograph. COMPARISON: Prior study dated 03/06/18. FINDINGS: The air space opacity within the right upper lobe is stable to the most recent examination, but impro katty from the comparison dated 12/18/17, but relatively stable to a comparison dated 02/21/18. The chr onic lung change is otherwise stable. Marked cardiomegaly persists. There is a small right pleural ef fusion that has developed in the interim. This is new from the comparison dated 03/06/18. IMPRESSION: Persistent right upper lobe air space opacity that has been stable since 02/21/18. There is a new sma ll right pleural effusion. Dedicated CT of the thorax is recommended for additional characterization. POS: FLOR[place]
[2018-03-07] MEDS: Albuterol Sulfate 1.25 MG/3 ML NEB NEB PRN (12:20)
[2018-03-07] MEDS: ALPRAZolam 0.5 MG TAB PO PRN ×2 (12:27→22:02)
[2018-03-07] MEDS: diphenhydrAMINE 25 MG CAP PO PRN (22:02)
[2018-03-08 06:04] LABS: #Lymphocytes 0.4 thou/uL (1.20-3.40); #Monocytes 0.2 thou/uL (0.11-0.59); #Neutrophils 9.6 thou/uL (1.40-6.50); %Basophils 0.2 % (0.0-1.0); %Lymphocytes 3.9 % (21.0-51.0); %Monocytes 2.1 % (0.0-10.0); %Neutrophils 93.8 % (42.0-75.0); Hemoglobin 8.3 g/dL (12.0-16.0); Mean Corpuscular Hemoglobin 28.2 pg (27.0-31.0); Mean Corpuscular Volume 88.1 fl (81.0-99.0); Platelet Count 323 thou/uL (130-400); RBC Distribution Width 14.3 % (11.5-14.5); Red Blood Cell (RBC) Count 2.94 mill/uL (4.20-5.40); White Blood Cell (WBC) Count 10.2 thou/uL (4.8-10.8)
[2018-03-08 06:12] LABS: ALT (SGPT) 14 U/L (8-55); AST (SGOT) 13 U/L (5-34); Albumin 3.3 g/dL (3.4-4.8); Alkaline Phosphatase 49 U/L (40-150); Anion Gap 13 mmol/L (10-20); BUN (Urea Nitrogen) 17 mg/dL (9.8-20.1); Bilirubin, Total Less than 0.2 mg/dL (0.2-1.2); Calc. Creatinine Clearance 58 mL/min (70-130); Calcium 8.7 mg/dL (7.8-10.44); Carbon Dioxide 24 mmol/L (23-31); Chloride 107 mmol/L (98-107); Estimated GFR-MDRD 75; Globulin 2.1 g/dL (2.4-3.5); Glucose 130 mg/dL (83-110); Potassium 4.6 mmol/L (3.5-5.1); Protein, Total 5.4 g/dL (6.0-8.3); Sodium 139 mmol/L (136-145)
[2018-03-08] MEDS: Mometasone/Formoterol 60 PUFF AER INH SCH (06:27)
[2018-03-08] MEDS: Benzonatate 100 MG CAP PO SCH (06:29)
[2018-03-08 06:52] VITALS: BP 133/59; TEMP 97.6
[2018-03-08] MEDS: Albuterol Sulfate 1.25 MG/3 ML NEB NEB PRN (08:10)
[2018-03-08] MEDS ORDERED: Iopamidol 370 76% 100 ML VIAL ONE (09:00)
[2018-03-08] MEDS: Saccharomyces boulardii 250 MG CAP PO SCH (09:14)
[2018-03-08] MEDS: Flecainide 50 MG TAB PO SCH (09:15)
[2018-03-08] MEDS: Spironolactone 25 MG TAB PO SCH (09:16)
[2018-03-08] MEDS: Famotidine 20 MG TAB PO SCH (09:16)
[2018-03-08] MEDS: guaiFENesin ER 600 MG TAB PO SCH (09:16)
[2018-03-08] MEDS: Atorvastatin Calcium 10 MG TAB PO SCH (09:16)
[2018-03-08] MEDS: Aspirin 81 mg Enteric Coated Tablet PO SCH (09:16)
[2018-03-08] MEDS: Apixaban 5 MG TAB PO SCH (09:17)
[2018-03-08] MEDS: Fluticasone Propionate Nasal Spray 16 gm Bottle NASAL SCH (09:18)
[2018-03-08] MEDS: VERAPAMIL 120 MG PO SCH (09:18)
--- NOTE | 2018-03-08 10:40 | CT ---
CT CHEST WITH CONTRAST: INDICATIONS: Right upper lobe air space opacity noted on chest exam. Evidence of small right effusion on chest ex am. TECHNIQUE: Multiple axial tomograms obtained through the chest with IV enhancement. FINDINGS: There is hyperexpansion. There are chronic lung parenchymal changes bilaterally. There is confluent alveolar opacity in the right upper lung, with internal air bronchograms. There i s some retraction of the right upper lobe fissure, suggesting a chronic process. This does extend to the pleural surface, and there is associated pleural thickening. No definite soft tissue mass ident ified. There is nonspecific mediastinal and hilar adenopathy. A right hilar lymph node measures up to 1.2 c m. Paratracheal lymph node on the right measures 1.4 cm. There are chronic appearing stranding changes in the right middle lobe with peripheral stranding seen into the anterior pleural surface. Peripheral densities are also seen in the right lower lobe, dameon ral of which have a nodular appearance but have linear components, suggesting chronic change. There are chronic changes seen in the left upper lobe, primarily involving the lingula, with some per ipheral reticulonodular opacities. There is a nodular density in the left upper lobe, mid aspect, which measures approximately 1 cm on t he coronal image. There is some mild apical pleural thickening with some nodularity in the left apex . Stranding and chronic appearing change in the posterior left lower lobe. Images through the upper abdomen are unremarkable. Osseous structures are unremarkable. IMPRESSION: 1. There is dense stranding and volume loss in the right upper lobe with shift of the mediastinum, c onsistent with chronic scarring. 2. There are chronic lung changes with scattered nodular opacities. A 1 cm nodular density in the l eft upper lobe is seen. 3. Nonspecific mediastinal and hilar lymph nodes. Recommend a noncontrast CT chest in six months to confirm stability of the nodular opacities and the right upper lobe scarring. POS: [place]OR[place]IA
--- NOTE | 2018-03-08 13:03 | DIS ---
DATE OF ADMISSION: 03/05/2018 DATE OF DISCHARGE: 03/08/2018, from acute inpatient status to swing bed status ADMISSION DIAGNOSES: Chronic obstructive pulmonary disease exacerbation with leukocytosis. SECONDARY DIAGNOSES: Include paroxysmal atrial fibrillation, hypertension, anxiety, and physical deconditioning. PROCEDURES: 03/05/2018, chest x-ray showed stable radiographic appearance of the chest, persistent right upper lung zone parenchymal opacity. 03/06/2018, chest x-ray shows persistent opacification of the lung parenchyma. Given the overall chronic opacification of the right upper lobe, a component of scarring/ atelectasis is favored. Correlation is made with CT from 12/19/2017, does demonstrate consolidation with air bronchograms, giving longstanding opacification better interrogation with a chest CT is recommended. Note on previous chest CT were nodular opacities present. 03/07/2018, chest x-ray shows persistent right upper lobe airspace opacity that has been stable since . There is a new small right pleural effusion. Dedicated CT of the thorax is recommended for additional characterization. HOSPITAL COURSE: An 83-year-old female with oxygen-dependent advanced COPD, who is followed by Dr. Luu, presented to [facility] Emergency Department with complaints of dyspnea, productive cough, and low-grade fever. At home, she had been using her usual medications and supplemental O2; however, did not feel to be improving, which resulted in her coming to the emergency department. Upon arrival, her imaging showed as above and she notably had a leukocytosis of 14.7 with a left shift. She was started on IV Levaquin and admitted to the floor. On the floor, she has been continued on this medication, amongst her other usual COPD medications. In addition to this, she has been started on IV Solu-Medrol. She has been slow to recover thus far and has been able to participate with PT/OT while here. A CT of the chest has been ordered as per direction from her chest x-rays over the last couple days. She has remained afebrile throughout her stay with blood cultures showing NGTD. Her leukocytosis has improved to be within normal limits at this time. Her other lab work is stable as well. At this time, she will transition from inpatient acute status to swing bed status for further antibiotic therapy and IV Solu- Medrol therapy along with followup of her planned CT of the chest today; she will continue PT/OT as well. DISPOSITION: The patient will transition from acute inpatient status to swing bed status. DISCHARGE MEDICATIONS: All current medications will be resumed at this time, which include acetaminophen 650 mg p.o. q.4 hours p.r.n., albuterol sulfate 1.25 mg nebs q.8 hours p.r.n., Xanax 0.25 mg p.o. b.i.d. p.r.n., Eliquis 5 mg p.o. b.i.d., aspirin 81 mg p.o. daily, atorvastatin 10 mg p.o. daily, Tessalon Perles 200 mg p.o. q.8 hours, Benadryl 25 mg p.o. at bedtime p.r.n., famotidine 20 mg p.o. daily, flecainide 75 mg p.o. b.i.d., Flonase b.i.d., guaifenesin DM 15 mL p.o. q.4 hours p.r.n., Mucinex 1200 mg p.o. b.i.d., DuoNeb 3 mL q.4 hours p.r.n., Levaquin 750 mg IV q.24 hours, Claritin 10 mg p.o. daily p.r.n., magnesium hydroxide 30 mL p.o. daily p.r.n., methylprednisolone 60 mg IV q.8 hours, Dulera 2 puffs b.i.d., Zofran 4 mg q.6 hours p.r.n., Florastor 250 mg p.o. daily, spironolactone 25 mg p.o. daily, verapamil 120 mg p.o. b.i.d. Her only current medication being held from her usual is the 20 mg p.o. prednisone secondary to her receiving IV Solu-Medrol at this time. [facility]
== END 2018-03-08 10:42 | DRG 192 ==
LOC: BURERS 13:41 → UNDOADMOB 15:30 → BURMED 15:30 → OBSVTOIN 15:31 → INTOOBSV 03-06 07:39 → UNDODISIN 03-08 10:42
PROVIDERS: ADMIT Family Medicine; ATTEND Family Medicine
DX: J44.1 Chronic obstructive pulmonary disease with (acute) exacerbation (principal); Z99.81 Dependence on supplemental oxygen; I48.0 Paroxysmal atrial fibrillation; I10 Essential (primary) hypertension; F41.9 Anxiety disorder, unspecified; I25.10 Atherosclerotic heart disease of native coronary artery without angina pectoris; E78.5 Hyperlipidemia, unspecified; Z90.49 Acquired absence of other specified parts of digestive tract; Z88.5 Allergy status to narcotic agent; Z88.8 Allergy status to other drugs, medicaments and biological substances; Z88.2 Allergy status to sulfonamides; H61.21 Impacted cerumen, right ear; I25.2 Old myocardial infarction
CPT/HCPCS: 36415; 71045; 71046; 71260; 80048; 80053; 82553; 83880; 84484; 85025; 87040; 93005; 94640; 94664; 96365; 96375; A4216; G8978-GP-CM; G8979-GP-CJ; J1956; J2920; J2930; J7506; J7620

== ENCOUNTER 2018-03-08 10:42 | Inpatient (IN) | payer MEDICARE, OTHER ==
[2018-03-08] MEDS ORDERED: Guaifenesin DM 100-10/5 ML UDCUP PO PRN (14:44)
[2018-03-08] MEDS ORDERED: diphenhydrAMINE 25 MG CAP PO PRN (14:44)
[2018-03-08] MEDS ORDERED: Ondansetron HCl/PF 4 MG/2 ML Vial IVP PRN (14:46)
[2018-03-08] MEDS ORDERED: Ondansetron ODT 4 MG TAB PO PRN (14:46)
[2018-03-08 16:59] LABS: Hemoglobin 8.8 g/dL (12.0-16.0); Platelet Count 345 thou/uL (130-400)
[2018-03-08] MEDS: SYMBICORT 160/4.5 INH SCH (18:13)
[2018-03-08] MEDS ORDERED: Mometasone/Formoterol 60 PUFF AER INH SCH (19:00)
[2018-03-08] MEDS: Fluticasone Propionate Nasal Spray 16 gm Bottle NASAL SCH (20:53)
[2018-03-08] MEDS: Flecainide 50 MG TAB PO SCH (20:55)
[2018-03-08] MEDS: Apixaban 5 MG TAB PO SCH (20:55)
[2018-03-08] MEDS: Atorvastatin Calcium 10 MG TAB PO SCH (20:55)
[2018-03-08] MEDS: guaiFENesin ER 600 MG TAB PO SCH (20:55)
[2018-03-08] MEDS: Senokot 8.6 MG TAB PO SCH (20:55)
[2018-03-08] MEDS: VERAPAMIL 120 MG PO SCH (20:58)
[2018-03-08] MEDS: Benzonatate 100 MG CAP PO SCH (22:33)
[2018-03-08] MEDS: methylPREDNISolone Sod Succ/PF 125 MG/2 ML VIAL IVP SCH (22:33)
[2018-03-08] MEDS: ALPRAZolam 0.5 MG TAB PO PRN (22:33)
[2018-03-09] MEDS: Benzonatate 100 MG CAP PO SCH ×3 (05:59→21:40)
[2018-03-09] MEDS: methylPREDNISolone Sod Succ/PF 125 MG/2 ML VIAL IVP SCH ×3 (06:00→22:03)
[2018-03-09] MEDS: guaiFENesin ER 600 MG TAB PO SCH ×2 (08:26→21:40)
[2018-03-09] MEDS: Saccharomyces boulardii 250 MG CAP PO SCH (08:27)
[2018-03-09] MEDS: Famotidine 20 MG TAB PO SCH (08:27)
[2018-03-09] MEDS: Flecainide 50 MG TAB PO SCH ×2 (08:27→21:41)
[2018-03-09] MEDS: Spironolactone 25 MG TAB PO SCH (08:27)
[2018-03-09] MEDS: Aspirin 81 mg Enteric Coated Tablet PO SCH (08:27)
[2018-03-09] MEDS: SYMBICORT 160/4.5 INH SCH ×2 (08:31→18:34)
[2018-03-09] MEDS: Fluticasone Propionate Nasal Spray 16 gm Bottle NASAL SCH ×2 (08:31→21:45)
[2018-03-09] MEDS: VERAPAMIL 120 MG PO SCH ×2 (08:34→21:52)
[2018-03-09] MEDS: Milk Of Magnesia 30 ML UDCUP PO PRN (10:08)
[2018-03-09] MEDS: Loratadine 10 MG TAB PO PRN (10:29)
[2018-03-09] MEDS ORDERED: Furosemide 20 MG TAB PO SCH (10:45)
[2018-03-09] MEDS: ALPRAZolam 0.5 MG TAB PO PRN (13:37)
[2018-03-09] MEDS: Apixaban 5 MG TAB PO SCH ×2 (14:55→21:45)
[2018-03-09] MEDS: Atorvastatin Calcium 10 MG TAB PO SCH (21:41)
[2018-03-09] MEDS: Senokot 8.6 MG TAB PO SCH (21:45)
[2018-03-10] MEDS: ALPRAZolam 0.5 MG TAB PO PRN ×3 (01:41→13:53)
[2018-03-10] MEDS: SYMBICORT 160/4.5 INH SCH ×2 (06:13→18:10)
[2018-03-10] MEDS: Benzonatate 100 MG CAP PO SCH ×3 (06:14→20:54)
[2018-03-10] MEDS: methylPREDNISolone Sod Succ/PF 125 MG/2 ML VIAL IVP SCH ×3 (06:19→22:27)
[2018-03-10 06:55] VITALS: BMI 25.5
[2018-03-10] MEDS: Milk Of Magnesia 30 ML UDCUP PO PRN (08:03)
[2018-03-10] MEDS: Famotidine 20 MG TAB PO SCH (08:04)
[2018-03-10] MEDS: guaiFENesin ER 600 MG TAB PO SCH ×2 (08:05→20:51)
[2018-03-10] MEDS: Spironolactone 25 MG TAB PO SCH (08:05)
[2018-03-10] MEDS: Flecainide 50 MG TAB PO SCH ×2 (08:05→20:55)
[2018-03-10] MEDS: Furosemide 20 MG TAB PO SCH (08:06)
[2018-03-10] MEDS: Aspirin 81 mg Enteric Coated Tablet PO SCH (08:06)
[2018-03-10] MEDS: Saccharomyces boulardii 250 MG CAP PO SCH (08:06)
[2018-03-10] MEDS: Apixaban 5 MG TAB PO SCH ×2 (08:06→20:49)
[2018-03-10] MEDS: VERAPAMIL 120 MG PO SCH ×2 (08:07→20:52)
[2018-03-10] MEDS: Fluticasone Propionate Nasal Spray 16 gm Bottle NASAL SCH ×2 (08:07→20:51)
[2018-03-10] MEDS: Atorvastatin Calcium 10 MG TAB PO SCH (20:50)
[2018-03-10] MEDS: Senokot 8.6 MG TAB PO SCH (20:53)
[2018-03-11] MEDS: Benzonatate 100 MG CAP PO SCH ×3 (05:52→21:15)
[2018-03-11] MEDS: SYMBICORT 160/4.5 INH SCH ×2 (05:53→18:05)
[2018-03-11] MEDS: methylPREDNISolone Sod Succ/PF 125 MG/2 ML VIAL IVP SCH ×3 (05:55→21:19)
[2018-03-11] MEDS: ALPRAZolam 0.5 MG TAB PO PRN ×2 (06:00→13:01)
[2018-03-11] MEDS: Milk Of Magnesia 30 ML UDCUP PO PRN (08:41)
[2018-03-11] MEDS: Fluticasone Propionate Nasal Spray 16 gm Bottle NASAL SCH ×2 (08:54→21:13)
[2018-03-11] MEDS: Aspirin 81 mg Enteric Coated Tablet PO SCH (08:55)
[2018-03-11] MEDS: Spironolactone 25 MG TAB PO SCH (08:55)
[2018-03-11] MEDS: Apixaban 5 MG TAB PO SCH ×2 (08:55→21:18)
[2018-03-11] MEDS: Flecainide 50 MG TAB PO SCH ×2 (08:55→21:14)
[2018-03-11] MEDS: guaiFENesin ER 600 MG TAB PO SCH ×2 (08:55→21:15)
[2018-03-11] MEDS: Furosemide 20 MG TAB PO SCH (08:57)
[2018-03-11] MEDS: Famotidine 20 MG TAB PO SCH (08:57)
[2018-03-11] MEDS: Saccharomyces boulardii 250 MG CAP PO SCH (08:57)
[2018-03-11] MEDS: VERAPAMIL 120 MG PO SCH ×2 (08:58→21:21)
[2018-03-11] MEDS: Furosemide 20 MG TAB PO PRN (16:51)
[2018-03-11] MEDS: Loratadine 10 MG TAB PO PRN (18:41)
[2018-03-11] MEDS: Senokot 8.6 MG TAB PO SCH (21:17)
[2018-03-11] MEDS: Atorvastatin Calcium 10 MG TAB PO SCH (21:18)
[2018-03-12] MEDS: SYMBICORT 160/4.5 INH SCH ×2 (05:57→18:13)
[2018-03-12] MEDS: Benzonatate 100 MG CAP PO SCH ×3 (05:57→21:32)
[2018-03-12] MEDS: methylPREDNISolone Sod Succ/PF 125 MG/2 ML VIAL IVP SCH ×3 (05:57→22:17)
[2018-03-12] MEDS: guaiFENesin ER 600 MG TAB PO SCH ×2 (08:35→21:32)
[2018-03-12] MEDS: Furosemide 20 MG TAB PO SCH (08:35)
[2018-03-12] MEDS: Aspirin 81 mg Enteric Coated Tablet PO SCH (08:36)
[2018-03-12] MEDS: Flecainide 50 MG TAB PO SCH ×2 (08:36→21:32)
[2018-03-12] MEDS: Loratadine 10 MG TAB PO PRN (08:36)
[2018-03-12] MEDS: Spironolactone 25 MG TAB PO SCH ×2 (08:36→17:10)
[2018-03-12] MEDS: Apixaban 5 MG TAB PO SCH ×2 (08:37→21:32)
[2018-03-12] MEDS: Famotidine 20 MG TAB PO SCH (08:37)
[2018-03-12] MEDS: Milk Of Magnesia 30 ML UDCUP PO PRN (08:38)
[2018-03-12] MEDS: Fluticasone Propionate Nasal Spray 16 gm Bottle NASAL SCH ×2 (08:38→21:31)
[2018-03-12] MEDS: Saccharomyces boulardii 250 MG CAP PO SCH (08:38)
[2018-03-12] MEDS: VERAPAMIL 120 MG PO SCH ×2 (08:39→21:40)
[2018-03-12] MEDS: ALPRAZolam 0.5 MG TAB PO PRN ×2 (13:23→21:33)
[2018-03-12] MEDS ORDERED: Benzonatate 100 MG CAP ONE ×2 (14:00→21:26)
[2018-03-12] MEDS: Senokot 8.6 MG TAB PO SCH (21:33)
[2018-03-12] MEDS: Atorvastatin Calcium 10 MG TAB PO SCH (21:33)
[2018-03-13] MEDS: Furosemide 20 MG TAB PO PRN (00:24)
[2018-03-13] MEDS ORDERED: Benzonatate 100 MG CAP ONE ×3 (05:29→13:35)
[2018-03-13] MEDS: methylPREDNISolone Sod Succ/PF 125 MG/2 ML VIAL IVP SCH (05:42)
[2018-03-13] MEDS: Benzonatate 100 MG CAP PO SCH ×3 (05:43→21:50)
[2018-03-13] MEDS: SYMBICORT 160/4.5 INH SCH ×2 (05:43→18:10)
[2018-03-13] MEDS: Fluticasone Propionate Nasal Spray 16 gm Bottle NASAL SCH ×2 (09:33→21:45)
[2018-03-13] MEDS: Apixaban 5 MG TAB PO SCH ×2 (09:34→21:55)
[2018-03-13] MEDS: Spironolactone 25 MG TAB PO SCH ×2 (09:34→16:50)
[2018-03-13] MEDS: Flecainide 50 MG TAB PO SCH ×2 (09:34→21:52)
[2018-03-13] MEDS: guaiFENesin ER 600 MG TAB PO SCH ×2 (09:34→21:52)
[2018-03-13] MEDS: predniSONE 20 MG TAB PO SCH (09:36)
[2018-03-13] MEDS: Saccharomyces boulardii 250 MG CAP PO SCH (09:37)
[2018-03-13] MEDS: VERAPAMIL 120 MG PO SCH ×2 (09:37→21:51)
[2018-03-13] MEDS: Aspirin 81 mg Enteric Coated Tablet PO SCH (09:38)
[2018-03-13] MEDS: Famotidine 20 MG TAB PO SCH (09:47)
[2018-03-13] MEDS: ALPRAZolam 0.5 MG TAB PO PRN (09:47)
[2018-03-13] MEDS: Furosemide 20 MG TAB PO SCH (09:49)
[2018-03-13] MEDS: Milk Of Magnesia 30 ML UDCUP PO PRN (10:15)
[2018-03-13] MEDS: Loratadine 10 MG TAB PO PRN (10:15)
[2018-03-13] MEDS ORDERED: Furosemide 20 MG TAB PO SCH (14:00)
[2018-03-13] MEDS: Senokot 8.6 MG TAB PO SCH (21:54)
[2018-03-13] MEDS: Atorvastatin Calcium 10 MG TAB PO SCH (21:55)
[2018-03-14] MEDS: Albuterol Sulfate 1.25 MG/3 ML NEB NEB PRN ×2 (03:01→10:27)
[2018-03-14] MEDS: Benzonatate 100 MG CAP PO SCH (05:35)
[2018-03-14] MEDS: SYMBICORT 160/4.5 INH SCH (05:37)
[2018-03-14 05:41] LABS: Hemoglobin 8.3 g/dL (12.0-16.0); Platelet Count 318 thou/uL (130-400)
[2018-03-14 07:48] LABS: Mean Corpuscular HGB CONC 32.4 g/dL (32.0-36.0); Mean Corpuscular Hemoglobin 27.4 pg (27.0-31.0); Mean Corpuscular Volume 84.7 fl (81.0-99.0); Mean Platelet Volume 6.6 fL (7.4-10.4); RBC Distribution Width 14.3 % (11.5-14.5); Red Blood Cell (RBC) Count 3.03 mill/uL (4.20-5.40); White Blood Cell (WBC) Count 32.6 thou/uL (4.8-10.8)
[2018-03-14] MEDS ORDERED: Ondansetron ODT 4 MG TAB PO PRN (07:50)
[2018-03-14] MEDS ORDERED: Acetaminophen 500 MG TAB PO PRN (07:50)
[2018-03-14 08:02] LABS: Band 3 % (5-11); Lymphocytes 2 % (21-51); MDiff Complete? YES; Monocytes 7 % (0-10); Neutrophil 88 % (42-75); PLT Morphology Comment Appears Adequate; RBC Morphology Normal
--- NOTE | 2018-03-14 08:52 | RAD ---
PORTABLE CHEST: Date: 03-14-18 Time: 0525 Comparison: 03-07-18 FINDINGS: New infiltrate has occurred in the right lung, predominately in the right lower lobe, but also some i n the right upper. The findings are consistent with pneumonia. The left lung remains relatively clear . The heart size is stable. There are no congestive changes. IMPRESSION: New right lung infiltrate consistent with pneumonia. Code T POS: HOME
[2018-03-14] MEDS: Fluticasone Propionate Nasal Spray 16 gm Bottle NASAL SCH (09:03)
[2018-03-14] MEDS: VERAPAMIL 120 MG PO SCH (09:04)
[2018-03-14] MEDS: guaiFENesin ER 600 MG TAB PO SCH (09:05)
[2018-03-14] MEDS: predniSONE 20 MG TAB PO SCH (09:05)
[2018-03-14] MEDS: Apixaban 5 MG TAB PO SCH (09:06)
[2018-03-14] MEDS: Famotidine 20 MG TAB PO SCH (09:06)
[2018-03-14] MEDS: Spironolactone 25 MG TAB PO SCH (09:06)
[2018-03-14] MEDS: Aspirin 81 mg Enteric Coated Tablet PO SCH (09:07)
[2018-03-14] MEDS: Flecainide 50 MG TAB PO SCH (09:07)
[2018-03-14] MEDS: Saccharomyces boulardii 250 MG CAP PO SCH (09:07)
[2018-03-14] MEDS: ALPRAZolam 0.5 MG TAB PO PRN (09:08)
[2018-03-14] MEDS: Loratadine 10 MG TAB PO PRN (09:16)
[2018-03-14 11:42] VITALS: BP 98/51; TEMP 98.2
[2018-03-14] MEDS ORDERED: Linezolid 600 MG in Premix Bag 1 BAG IVPB SCH (21:00)
--- NOTE | 2018-03-15 09:06 | DIS ---
DATE OF ADMISSION: 03/05/2018 Date of discharge from [facility] to [facility] in [place]: 03/14/2018 ADMISSION DIAGNOSES: Chronic obstructive pulmonary disease exacerbation with leukocytosis. SECONDARY DIAGNOSES: Paroxysmal atrial fibrillation, hypertension, anxiety, lower extremity edema, physical deconditioning. PROCEDURES: On 03/05/2018, chest x-ray showed stable radiographic appearance of the chest, persistent right upper lung zone parenchymal opacity. On 2017, chest x-ray shows persistent opacification of the lung parenchyma. Given the overall chronic opacification of the right upper lobe component of scarring/ atelectasis is favored. Correlation is made with CT from 12/19/2017 does demonstrate consolidation with air bronchograms giving longstanding opacification better interrogation with a chest CT is recommended. A note on previous chest CT were nodular opacities present. On 03/07/2018, chest x-ray shows persistent right upper lobe opacity that has been stable since 2017. There is a new small right pleural effusion, dedicated CT thorax is recommended for additional characterization. On 03/08/2018, CT of the chest shows a dense stranding and volume loss in the right upper lobe with shift of the mediastinum consistent with chronic scarring. There are chronic lung changes with scattered nodular opacities. A 1 cm nodular density in the left upper lobe is seen. Nonspecific mediastinal and hilar lymph nodes. Recommend a noncontrast CT chest in 6 months to confirm stability of the nodular opacities in the right upper lobe scarring. Chest x-ray 03/14/2018 shows a new right lung infiltrate consistent with pneumonia. HOSPITAL COURSE: An 83-year-old female with advanced COPD, for which she is oxygen dependent, who is followed by Dr. Luu. Initially, presented to [facility] Emergency Department with upper respiratory symptoms including dyspnea , productive cough and low grade fever at home that did not improve over 3-4 days. Her initial labs showed a leukocytosis of 14.7 with a left shift. She was started on IV Levaquin empirically and admitted to the floor for continuation of her oxygen, nebulized treatments and p.o. prednisone. The patient displayed slow recovery of her respiratory status and thus was transitioned from her usual 20 mg p.o. prednisone to IV Solu-Medrol 60 mg q.8 hours for which she completed a 5-day course. In addition to this, she completed 750 mg IV Levaquin daily x7 days as well. The Solu-Medrol and Levaquin were both discontinued yesterday. A repeat chest x-ray was obtained this morning showing a concern for a new right lung infiltrate consistent with pneumonia. In addition to this, her CBC was repeated and showed increased white count of 32.6 with a left shift. Her most recent white count prior to this was on 03/08/2018 and was notably normal at 10.2 and as stated, she completed a 1 week course of antibiotics yesterday. Her white count may slightly be influenced from discontinuation of the IV Solu-Medrol of 5 days yesterday and she has remained afebrile. The patient had order to restart IV Levaquin with the addition of IV Zyvox this morning; however, her respiratory status has further declined, requiring greater oxygenation needs up to 8.5 liters of supplemental oxygen via simple facemask to keep her at 92%. Due to her tenuous respiratory status and advanced COPD, I have spoken with Dr. Desai of [facility] at [facility] in [place] for transfer of the patient for higher level of care including respiratory therapy and evaluation by Pulmonology. DISPOSITION: The patient will transition from a swing status at [facility] to a direct admission on the medical floor at [facility] for what appears to be a health care associated pneumonia and a COPD exacerbation. DISCHARGE MEDICATIONS: The patient is discharged on her usual home medications which include Tylenol 650 mg p.o. q.4 hours p.r.n., albuterol sulfate 1.25 mg nebs q.8 hours p.r.n., Xanax 0.25 mg p.o. b.i.d. p.r.n., Eliquis 5 mg p.o. b.i.d., aspirin 81 mg p.o. daily, atorvastatin 10 mg p.o. daily, Tessalon Perles 200 mg p.o. q.8 hours, Benadryl 25 mg p.o. at bedtime p.r.n., famotidine 20 mg p.o. daily, flecainide 75 mg p.o. b.i.d., Flonase 1 spray to each nostril daily, guaifenesin DM 15 mL p.o. q.4 hours p.r.n., Mucinex 1200 mg p.o. b.i.d., DuoNeb 3 mL q.4 hours p.r.n., Claritin 10 mg p.o. daily p.r.n., magnesium hydroxide 30 mL p.o. daily p.r.n., Symbicort 2 puffs b.i.d., Zofran 4 mg q.6 hours p.r.n., spironolactone 25 mg p.o. b.i.d., verapamil 120 mg p.o. b.i.d., prednisone 20 mg p.o. daily. There has been plan to start Zyvox 600 mg IV b.i.d. and Levaquin 750 mg IV daily; however, this is subject to change per her admission in [place]. [facility]
== END 2018-03-14 11:59 | disposition short-term general hospital (02) | DRG 190 ==
LOC: BURMED 10:42
PROVIDERS: ADMIT Family Medicine; ATTEND Family Medicine
DX: J44.1 Chronic obstructive pulmonary disease with (acute) exacerbation (principal); J18.9 Pneumonia, unspecified organism; Z99.81 Dependence on supplemental oxygen; I48.0 Paroxysmal atrial fibrillation; I10 Essential (primary) hypertension; F41.9 Anxiety disorder, unspecified; I25.10 Atherosclerotic heart disease of native coronary artery without angina pectoris; E78.5 Hyperlipidemia, unspecified; Y95 Nosocomial condition; Z79.82 Long term (current) use of aspirin; R53.81 Other malaise; K59.00 Constipation, unspecified
CPT/HCPCS: 36415; 71045; 82565; 85025; A4216; G8978-GP-CK; G8979-GP-CI; G8987-GO-CJ; G8988-GO-CI; J1956; J2930; J7506; J7620; Q0162

== ENCOUNTER 2018-03-22 15:07 | Inpatient (IN) | payer MEDICARE, OTHER ==
[2018-03-22] MEDS ORDERED: Albuterol Sulfate 2.5 mg/3 ml Neb NEB PRN (21:05)
[2018-03-22] MEDS ORDERED: ALPRAZOLAM 0.25 MG PO PRN (21:05)
[2018-03-22] MEDS: Benzonatate 100 MG CAP PO SCH (22:44)
[2018-03-22] MEDS ORDERED: ALPRAZolam 0.5 MG TAB PO SCH (22:45)
[2018-03-22] MEDS: Ondansetron ODT 4 MG TAB PO PRN (23:08)
[2018-03-23] MEDS: Benzonatate 100 MG CAP PO SCH ×3 (06:45→21:13)
[2018-03-23] MEDS: Acetaminophen 325 MG TAB PO PRN (06:45)
[2018-03-23] MEDS ORDERED: Mometasone/Formoterol 60 PUFF AER INH SCH (07:00)
[2018-03-23] MEDS ORDERED: Zolpidem Tartrate 5 MG TAB PO PRN (08:27)
[2018-03-23] MEDS ORDERED: PREDNISONE 40 MG PO SCH (09:00)
[2018-03-23] MEDS: ALPRAZolam 0.5 MG TAB PO SCH ×2 (09:56→21:11)
[2018-03-23] MEDS: Flecainide 50 MG TAB PO SCH ×2 (09:57→21:20)
[2018-03-23] MEDS: predniSONE 20 MG TAB PO SCH (09:58)
[2018-03-23] MEDS: Aspirin 81 mg Enteric Coated Tablet PO SCH (09:59)
[2018-03-23] MEDS: busPIRone HCl 5 MG TAB PO SCH ×3 (09:59→21:23)
[2018-03-23] MEDS: Apixaban 5 MG TAB PO SCH ×2 (09:59→21:12)
[2018-03-23] MEDS: Atorvastatin Calcium 10 MG TAB PO SCH (10:00)
[2018-03-23] MEDS: Spironolactone 25 MG TAB PO SCH ×2 (10:00→17:31)
[2018-03-23] MEDS: Famotidine 20 MG TAB PO SCH ×2 (10:00→21:14)
[2018-03-23] MEDS: Nystatin 500,000 UNITS/5 ML UDCUP SSW SCH ×4 (10:01→21:16)
[2018-03-23] MEDS: Saccharomyces boulardii 250 MG CAP PO SCH (10:01)
[2018-03-23] MEDS: Fluticasone Propionate Nasal Spray 16 gm Bottle NASAL SCH ×2 (10:04→21:21)
[2018-03-23] MEDS: VERAPAMIL 120 MG PO SCH ×2 (10:10→21:22)
[2018-03-23] MEDS: Furosemide 20 MG TAB PO SCH (13:59)
[2018-03-23] MEDS ORDERED: Lidocaine Viscous Sol 2% 15 ml UD Cup ONE (14:04)
[2018-03-23] MEDS: Lidocaine Viscous Sol 2% 15 ml UD Cup SSW PRN (14:06)
[2018-03-24] MEDS: Acetaminophen 325 MG TAB PO PRN (04:29)
[2018-03-24] MEDS: Benzonatate 100 MG CAP PO SCH ×3 (06:33→21:57)
[2018-03-24] MEDS: Spironolactone 25 MG TAB PO SCH ×2 (09:22→17:50)
[2018-03-24] MEDS: Famotidine 20 MG TAB PO SCH ×2 (09:24→21:58)
[2018-03-24] MEDS: ALPRAZolam 0.5 MG TAB PO SCH ×2 (09:24→22:04)
[2018-03-24] MEDS: Apixaban 5 MG TAB PO SCH ×2 (09:24→21:58)
[2018-03-24] MEDS: Aspirin 81 mg Enteric Coated Tablet PO SCH (09:27)
[2018-03-24] MEDS: Atorvastatin Calcium 10 MG TAB PO SCH (09:28)
[2018-03-24] MEDS: busPIRone HCl 5 MG TAB PO SCH ×2 (09:28→21:57)
[2018-03-24] MEDS: Flecainide 50 MG TAB PO SCH ×2 (09:29→21:54)
[2018-03-24] MEDS: Furosemide 20 MG TAB PO SCH ×3 (09:30→13:49)
[2018-03-24] MEDS: VERAPAMIL 120 MG PO SCH ×2 (09:30→22:00)
[2018-03-24] MEDS: Nystatin 500,000 UNITS/5 ML UDCUP SSW SCH ×4 (09:30→21:57)
[2018-03-24] MEDS: predniSONE 20 MG TAB PO SCH (09:31)
[2018-03-24] MEDS: Saccharomyces boulardii 250 MG CAP PO SCH (09:32)
[2018-03-24] MEDS: Fluticasone Propionate Nasal Spray 16 gm Bottle NASAL SCH ×2 (09:33→21:58)
[2018-03-24] MEDS: ALPRAZolam 0.5 MG TAB PO PRN (14:30)
[2018-03-25] MEDS ORDERED: Lidocaine Viscous Sol 2% 15 ml UD Cup ONE (05:36)
[2018-03-25 05:40] LABS: Hemoglobin 5.5 g/dL (12.0-16.0); Platelet Count 120 thou/uL (130-400)
[2018-03-25] MEDS: Benzonatate 100 MG CAP PO SCH ×3 (05:42→20:58)
[2018-03-25] MEDS: Lidocaine Viscous Sol 2% 15 ml UD Cup SSW PRN (05:45)
[2018-03-25] MEDS: Spironolactone 25 MG TAB PO SCH ×2 (09:51→18:24)
[2018-03-25] MEDS: Famotidine 20 MG TAB PO SCH ×2 (09:51→20:58)
[2018-03-25] MEDS: Flecainide 50 MG TAB PO SCH ×2 (09:51→20:57)
[2018-03-25] MEDS: busPIRone HCl 5 MG TAB PO SCH ×2 (09:51→20:59)
[2018-03-25] MEDS: Atorvastatin Calcium 10 MG TAB PO SCH (09:54)
[2018-03-25] MEDS: predniSONE 20 MG TAB PO SCH (09:54)
[2018-03-25] MEDS: Aspirin 81 mg Enteric Coated Tablet PO SCH (09:54)
[2018-03-25] MEDS: Furosemide 20 MG TAB PO SCH (09:55)
[2018-03-25] MEDS: Saccharomyces boulardii 250 MG CAP PO SCH (09:55)
[2018-03-25] MEDS: Apixaban 5 MG TAB PO SCH (09:55)
[2018-03-25] MEDS: ALPRAZolam 0.5 MG TAB PO SCH ×2 (09:55→21:00)
[2018-03-25] MEDS: Nystatin 500,000 UNITS/5 ML UDCUP SSW SCH ×4 (09:56→20:59)
[2018-03-25] MEDS: Fluticasone Propionate Nasal Spray 16 gm Bottle NASAL SCH ×2 (09:57→20:55)
[2018-03-25] MEDS: VERAPAMIL 120 MG PO SCH ×2 (09:57→21:00)
[2018-03-25] MEDS: Sodium Chloride 0.9% 20 ML ONE ×2 (11:55→13:21)
[2018-03-25 12:48] LABS: ALT (SGPT) 20 U/L (8-55); AST (SGOT) 12 U/L (5-34); Albumin 2.9 g/dL (3.4-4.8); Alkaline Phosphatase 46 U/L (40-150); Anion Gap 12 mmol/L (10-20); BUN (Urea Nitrogen) 31 mg/dL (9.8-20.1); Bilirubin, Total Less than 0.2 mg/dL (0.2-1.2); Calc. Creatinine Clearance 68 mL/min (70-130); Calcium 8.4 mg/dL (7.8-10.44); Chloride 100 mmol/L (98-107); Estimated GFR-MDRD 80; Globulin 1.6 g/dL (2.4-3.5); Glucose 101 mg/dL (83-110); Potassium 4.1 mmol/L (3.5-5.1); Protein, Total 4.5 g/dL (6.0-8.3); Sodium 137 mmol/L (136-145)
[2018-03-25] MEDS ORDERED: Furosemide 20 MG/2 ML VIAL SLOW IVP SCH (13:00)
[2018-03-25 13:17] LABS: Band 1 % (5-11); Eosinophils 1 % (0-10); Hemoglobin 6.1 g/dL (12.0-16.0); Hypersemented Neutrophil SLIGHT; Lymphocytes 4 % (21-51); MDiff Complete? YES; Mean Corpuscular HGB CONC 33.8 g/dL (32.0-36.0); Mean Corpuscular Hemoglobin 28.2 pg (27.0-31.0); Mean Corpuscular Volume 83.4 fl (81.0-99.0); Mean Platelet Volume 7.6 fL (7.4-10.4); Monocytes 2 % (0-10); Neutrophil 92 % (42-75); Platelet Count 136 thou/uL (130-400); RBC Distribution Width 14.7 % (11.5-14.5); Red Blood Cell (RBC) Count 2.18 mill/uL (4.20-5.40); Rouleaux Formation SLIGHT = 1-5 cells (100X) (None Seen); White Blood Cell (WBC) Count 21.5 thou/uL (4.8-10.8)
[2018-03-25 13:18] LABS: Carbon Dioxide 29 mmol/L (23-31)
[2018-03-25] MEDS: ALPRAZolam 0.5 MG TAB PO PRN (13:20)
[2018-03-25] MEDS ORDERED: diphenhydrAMINE 25 MG CAP PO SCH (14:45)
[2018-03-25] MEDS ORDERED: Acetaminophen 325 MG TAB PO SCH (14:45)
[2018-03-25 16:47] LABS: Iron 80 ug/dL (50-170); Iron Binding Capacity, Total 238 mcg/dL (265-497)
[2018-03-25 17:20] LABS: Folate (Folic Acid) 5.8 ng/mL (7.0-31.4)
--- NOTE | 2018-03-25 18:09 | RAD ---
CHEST TWO VIEWS 03/25/18 Comparison is made with a study done on 03/18/18. The lungs are hyperexpanded with flattening of the diaphragm as usual. Chronic changes are seen parti cularly in the right lung, especially the right upper lobe with some volume loss in this area. This r esults in slight tracheal deviation to the right. Chronic blunting of the right costophrenic angle is similar to before. Some opacity in the mid lung zones actually seems a little better than before. Th e left lung is relatively clear except for some minor scarring that is probably in the lingula. The h eart size is stable. There are no congestive changes. calcific changes are seen in the aorta, as ua l. IMPRESSION: Hyperexpanded lungs with chronic lung disease, particularly on the right side. No adverse changes sin ce 03/18. POS: HOME
[2018-03-25 23:44] LABS: Hemoglobin 9.2 g/dL (12.0-16.0)
[2018-03-25 23:45] LABS: Platelet Count 115 thou/uL (130-400)
[2018-03-26] MEDS: Acetaminophen 325 MG TAB PO PRN ×3 (00:08→20:22)
[2018-03-26] MEDS: Benzonatate 100 MG CAP PO SCH ×3 (05:57→21:57)
[2018-03-26] MEDS: busPIRone HCl 5 MG TAB PO SCH ×2 (08:36→20:43)
[2018-03-26] MEDS: Saccharomyces boulardii 250 MG CAP PO SCH (08:36)
[2018-03-26] MEDS: Flecainide 50 MG TAB PO SCH ×2 (08:36→20:41)
[2018-03-26] MEDS: Famotidine 20 MG TAB PO SCH ×2 (08:36→20:43)
[2018-03-26] MEDS: Fluticasone Propionate Nasal Spray 16 gm Bottle NASAL SCH ×2 (08:38→20:55)
[2018-03-26] MEDS: Furosemide 20 MG TAB PO SCH ×2 (08:39→13:10)
[2018-03-26] MEDS: Spironolactone 25 MG TAB PO SCH ×2 (08:39→17:55)
[2018-03-26] MEDS: predniSONE 20 MG TAB PO SCH (08:39)
[2018-03-26] MEDS: Aspirin 81 mg Enteric Coated Tablet PO SCH (08:39)
[2018-03-26] MEDS: Nystatin 500,000 UNITS/5 ML UDCUP SSW SCH ×4 (08:39→20:55)
[2018-03-26] MEDS: Atorvastatin Calcium 10 MG TAB PO SCH (08:39)
[2018-03-26] MEDS: VERAPAMIL 120 MG PO SCH ×2 (08:40→20:46)
[2018-03-26] MEDS: ALPRAZolam 0.5 MG TAB PO SCH ×2 (08:40→20:37)
[2018-03-26] MEDS ORDERED: Lidocaine Viscous Sol 2% 15 ml UD Cup ONE ×2 (11:08→22:19)
[2018-03-26] MEDS: Lidocaine Viscous Sol 2% 15 ml UD Cup SSW PRN ×2 (11:10→22:21)
[2018-03-26] MEDS ORDERED: Milk Of Magnesia 30 ML UDCUP PO SCH (12:00)
[2018-03-26] MEDS ORDERED: Furosemide 20 MG TAB PO SCH (14:00)
[2018-03-26] MEDS: SYMBICORT 160/4.5 INH SCH (20:47)
[2018-03-27] MEDS: Acetaminophen 325 MG TAB PO PRN ×5 (00:25→21:11)
[2018-03-27] MEDS: diphenhydrAMINE 25 MG CAP PO PRN ×2 (00:25→23:59)
[2018-03-27 05:08] VITALS: BMI 27.0
[2018-03-27 05:34] LABS: #Basophils 0.1 thou/uL (0.0-0.2); #Eosinphils 0.1 thou/uL (0.0-0.7); #Lymphocytes 1.1 thou/uL (1.20-3.40); #Neutrophils 14.8 thou/uL (1.40-6.50); %Basophils 0.5 % (0.0-1.0); %Eosinophils 0.5 % (0.0-10.0); %Lymphocytes 6.6 % (21.0-51.0); %Monocytes 5.6 % (0.0-10.0); %Neutrophils 86.7 % (42.0-75.0); Hemoglobin 8.8 g/dL (12.0-16.0); Mean Corpuscular HGB CONC 36.4 g/dL (32.0-36.0); Mean Corpuscular Hemoglobin 30.6 pg (27.0-31.0); Mean Corpuscular Volume 83.9 fl (81.0-99.0); Platelet Count 126 thou/uL (130-400); Red Blood Cell (RBC) Count 2.87 mill/uL (4.20-5.40)
[2018-03-27 05:39] LABS: Calc. Creatinine Clearance 79 mL/min (70-130); Estimated GFR-MDRD Greater than 90
[2018-03-27] MEDS: Benzonatate 100 MG CAP PO SCH ×3 (05:48→21:00)
[2018-03-27] MEDS ORDERED: Furosemide 20 MG TAB PO PRN (07:18)
[2018-03-27] MEDS ORDERED: Ferrous Sulfate 325 MG TAB PO SCH (08:00)
[2018-03-27] MEDS ORDERED: Furosemide 20 MG TAB PO SCH (09:00)
[2018-03-27] MEDS: SYMBICORT 160/4.5 INH SCH ×2 (09:16→21:13)
[2018-03-27] MEDS: Fluticasone Propionate Nasal Spray 16 gm Bottle NASAL SCH ×2 (09:17→21:01)
[2018-03-27] MEDS: Cyanocobalamin (Vitamin B-12) 1,000 MCG TAB PO SCH (09:18)
[2018-03-27] MEDS: Aspirin 81 mg Enteric Coated Tablet PO SCH (09:18)
[2018-03-27] MEDS: valACYclovir 500 MG TAB PO SCH ×2 (09:18→21:05)
[2018-03-27] MEDS: ALPRAZolam 0.5 MG TAB PO SCH ×2 (09:18→21:02)
[2018-03-27] MEDS: Flecainide 50 MG TAB PO SCH ×2 (09:19→20:59)
[2018-03-27] MEDS: Famotidine 20 MG TAB PO SCH ×2 (09:20→21:03)
[2018-03-27] MEDS: Spironolactone 25 MG TAB PO SCH ×2 (09:20→17:27)
[2018-03-27] MEDS: predniSONE 20 MG TAB PO SCH (09:20)
[2018-03-27] MEDS: busPIRone HCl 5 MG TAB PO SCH ×2 (09:20→21:00)
[2018-03-27] MEDS: Atorvastatin Calcium 10 MG TAB PO SCH (09:20)
[2018-03-27] MEDS: Milk Of Magnesia 30 ML UDCUP PO SCH (09:21)
[2018-03-27] MEDS: VERAPAMIL 120 MG PO SCH ×2 (09:21→21:00)
[2018-03-27] MEDS: Nystatin 500,000 UNITS/5 ML UDCUP SSW SCH ×4 (09:21→21:03)
[2018-03-27] MEDS: Folic Acid 1 MG TAB PO SCH (09:21)
[2018-03-27] MEDS: Saccharomyces boulardii 250 MG CAP PO SCH (09:21)
[2018-03-27] MEDS ORDERED: Lidocaine Viscous Sol 2% 15 ml UD Cup ONE ×2 (09:45→21:19)
[2018-03-27] MEDS: Lidocaine Viscous Sol 2% 15 ml UD Cup SSW PRN ×2 (09:47→21:22)
[2018-03-27] MEDS ORDERED: guaiFENesin/DM ER PO PRN (14:19)
[2018-03-27] MEDS ORDERED: Furosemide 20 MG/2 ML VIAL SLOW IVP SCH (14:30)
[2018-03-28] MEDS: Acetaminophen 325 MG TAB PO PRN ×3 (03:25→14:40)
[2018-03-28] MEDS: Benzonatate 100 MG CAP PO SCH ×3 (06:20→21:23)
[2018-03-28] MEDS: SYMBICORT 160/4.5 INH SCH ×2 (10:00→21:22)
[2018-03-28] MEDS: Fluticasone Propionate Nasal Spray 16 gm Bottle NASAL SCH ×2 (10:02→21:27)
[2018-03-28] MEDS: VERAPAMIL 120 MG PO SCH ×2 (10:03→21:34)
[2018-03-28] MEDS: valACYclovir 500 MG TAB PO SCH (10:04)
[2018-03-28] MEDS: Atorvastatin Calcium 10 MG TAB PO SCH (10:04)
[2018-03-28] MEDS: Flecainide 50 MG TAB PO SCH ×2 (10:05→21:21)
[2018-03-28] MEDS: Aspirin 81 mg Enteric Coated Tablet PO SCH (10:05)
[2018-03-28] MEDS: Famotidine 20 MG TAB PO SCH ×2 (10:06→21:21)
[2018-03-28] MEDS: Folic Acid 1 MG TAB PO SCH (10:06)
[2018-03-28] MEDS: predniSONE 20 MG TAB PO SCH (10:06)
[2018-03-28] MEDS: Furosemide 40 MG TAB PO SCH (10:07)
[2018-03-28] MEDS: Spironolactone 25 MG TAB PO SCH ×2 (10:07→16:25)
[2018-03-28] MEDS: Cyanocobalamin (Vitamin B-12) 1,000 MCG TAB PO SCH (10:07)
[2018-03-28] MEDS: ALPRAZolam 0.5 MG TAB PO SCH ×2 (10:07→21:20)
[2018-03-28] MEDS: busPIRone HCl 5 MG TAB PO SCH ×2 (10:07→21:21)
[2018-03-28] MEDS: Saccharomyces boulardii 250 MG CAP PO SCH (10:08)
[2018-03-28] MEDS: Nystatin 500,000 UNITS/5 ML UDCUP SSW SCH (10:09)
[2018-03-28] MEDS: Milk Of Magnesia 30 ML UDCUP PO SCH (10:09)
[2018-03-28] MEDS: Guaifenesin DM 100-10/5 ML UDCUP PO PRN (10:10)
[2018-03-28] MEDS ORDERED: Lidocaine Viscous Sol 2% 15 ml UD Cup ONE (12:28)
[2018-03-28] MEDS: Lidocaine Viscous Sol 2% 15 ml UD Cup SSW PRN (12:34)
[2018-03-28] MEDS ORDERED: Metolazone 5 MG TAB PO SCH (17:30)
[2018-03-29] MEDS: Acetaminophen 325 MG TAB PO PRN (04:56)
[2018-03-29 05:06] LABS: #Lymphocytes 0.8 thou/uL (1.20-3.40); #Monocytes 0.6 thou/uL (0.11-0.59); #Neutrophils 13.3 thou/uL (1.40-6.50); %Basophils 0.3 % (0.0-1.0); %Eosinophils 0.2 % (0.0-10.0); %Lymphocytes 5.6 % (21.0-51.0); %Monocytes 4.1 % (0.0-10.0); %Neutrophils 89.9 % (42.0-75.0); Hemoglobin 8.3 g/dL (12.0-16.0); Mean Corpuscular HGB CONC 34.7 g/dL (32.0-36.0); Mean Corpuscular Hemoglobin 29.1 pg (27.0-31.0); Mean Corpuscular Volume 83.9 fl (81.0-99.0); Mean Platelet Volume 8.1 fL (7.4-10.4); Platelet Count 136 thou/uL (130-400); RBC Distribution Width 14.3 % (11.5-14.5); Red Blood Cell (RBC) Count 2.87 mill/uL (4.20-5.40); White Blood Cell (WBC) Count 14.8 thou/uL (4.8-10.8)
[2018-03-29 05:20] LABS: ALT (SGPT) 21 U/L (8-55); AST (SGOT) 13 U/L (5-34); Alkaline Phosphatase 50 U/L (40-150); Anion Gap 14 mmol/L (10-20); BUN (Urea Nitrogen) 21 mg/dL (9.8-20.1); Bilirubin, Total 0.3 mg/dL (0.2-1.2); Calc. Creatinine Clearance 68 mL/min (70-130); Calcium 9.2 mg/dL (7.8-10.44); Carbon Dioxide 32 mmol/L (23-31); Chloride 97 mmol/L (98-107); Estimated GFR-MDRD 80; Glucose 98 mg/dL (83-110); Potassium 5.1 mmol/L (3.5-5.1); Sodium 138 mmol/L (136-145)
[2018-03-29] MEDS: Benzonatate 100 MG CAP PO SCH ×3 (06:29→23:07)
[2018-03-29] MEDS: ALPRAZolam 0.5 MG TAB PO SCH ×2 (08:37→20:38)
[2018-03-29] MEDS: Flecainide 50 MG TAB PO SCH ×2 (08:38→20:40)
[2018-03-29] MEDS: Aspirin 81 mg Enteric Coated Tablet PO SCH (08:39)
[2018-03-29] MEDS: Saccharomyces boulardii 250 MG CAP PO SCH (08:39)
[2018-03-29] MEDS: Atorvastatin Calcium 10 MG TAB PO SCH (08:39)
[2018-03-29] MEDS: predniSONE 20 MG TAB PO SCH (08:39)
[2018-03-29] MEDS: Spironolactone 25 MG TAB PO SCH ×2 (08:40→17:03)
[2018-03-29] MEDS: Folic Acid 1 MG TAB PO SCH (08:40)
[2018-03-29] MEDS: busPIRone HCl 5 MG TAB PO SCH ×2 (08:40→20:39)
[2018-03-29] MEDS: Cyanocobalamin (Vitamin B-12) 1,000 MCG TAB PO SCH (08:40)
[2018-03-29] MEDS: Furosemide 40 MG TAB PO SCH (08:40)
[2018-03-29] MEDS: Famotidine 20 MG TAB PO SCH ×2 (08:41→20:39)
[2018-03-29] MEDS: VERAPAMIL 120 MG PO SCH ×2 (08:43→21:22)
[2018-03-29] MEDS: Milk Of Magnesia 30 ML UDCUP PO SCH (08:45)
[2018-03-29] MEDS: SYMBICORT 160/4.5 INH SCH ×2 (08:46→20:41)
[2018-03-29] MEDS: Fluticasone Propionate Nasal Spray 16 gm Bottle NASAL SCH ×2 (08:52→20:40)
[2018-03-29] MEDS: Lidocaine Viscous Sol 2% 15 ml UD Cup SSW PRN (17:17)
[2018-03-29] MEDS ORDERED: Lidocaine Viscous Sol 2% 15 ml UD Cup ONE (23:33)
[2018-03-29] MEDS: ALPRAZolam 0.5 MG TAB PO PRN (23:48)
[2018-03-30] MEDS: Guaifenesin DM 100-10/5 ML UDCUP PO PRN (01:01)
[2018-03-30] MEDS: Lidocaine Viscous Sol 2% 15 ml UD Cup SSW PRN (03:22)
[2018-03-30] MEDS: Acetaminophen 325 MG TAB PO PRN ×2 (06:43→09:38)
[2018-03-30] MEDS: Benzonatate 100 MG CAP PO SCH ×2 (06:43→15:53)
[2018-03-30 07:46] VITALS: BP 172/73
[2018-03-30] MEDS ORDERED: guaiFENesin ER 600 MG TAB PO SCH (09:00)
[2018-03-30] MEDS: Nystatin 500,000 UNITS/5 ML UDCUP SSW SCH ×2 (09:11→13:04)
[2018-03-30] MEDS: Flecainide 50 MG TAB PO SCH (09:11)
[2018-03-30] MEDS: predniSONE 20 MG TAB PO SCH (09:12)
[2018-03-30] MEDS: Folic Acid 1 MG TAB PO SCH (09:12)
[2018-03-30] MEDS: Aspirin 81 mg Enteric Coated Tablet PO SCH (09:12)
[2018-03-30] MEDS: Cyanocobalamin (Vitamin B-12) 1,000 MCG TAB PO SCH (09:13)
[2018-03-30] MEDS: Spironolactone 25 MG TAB PO SCH (09:13)
[2018-03-30] MEDS: Famotidine 20 MG TAB PO SCH (09:13)
[2018-03-30] MEDS: Atorvastatin Calcium 10 MG TAB PO SCH (09:13)
[2018-03-30] MEDS: ALPRAZolam 0.5 MG TAB PO SCH (09:14)
[2018-03-30] MEDS: Furosemide 40 MG TAB PO SCH (09:15)
[2018-03-30] MEDS: SYMBICORT 160/4.5 INH SCH (09:17)
[2018-03-30] MEDS: busPIRone HCl 5 MG TAB PO SCH (09:17)
[2018-03-30] MEDS: Fluticasone Propionate Nasal Spray 16 gm Bottle NASAL SCH (09:18)
[2018-03-30] MEDS: Saccharomyces boulardii 250 MG CAP PO SCH (09:19)
[2018-03-30] MEDS: Milk Of Magnesia 30 ML UDCUP PO SCH (09:20)
[2018-03-30] MEDS: VERAPAMIL 120 MG PO SCH (09:30)
[2018-03-30 11:13] VITALS: TEMP 98.2
[2018-03-30] MEDS ORDERED: Ondansetron ODT 4 MG TAB PO PRN (11:47)
[2018-03-30] MEDS: Ondansetron ODT 4 MG TAB PO PRN (11:47)
--- NOTE | 2018-03-30 20:13 | RAD ---
CHEST TWO VIEWS: 03/30/2018 COMPARISON: 03/25/2018 FINDINGS: The heart is normal in size. There continues to be pleural fluid on the right, which has increased s lightly in the interval. There is more infiltrate in the right upper lobe and in the right middle lo be than there was before. The left lung remains relatively clear. The aorta is calcified, as usual. IMPRESSION: Some increase in right-sided infiltrate and fluid since the 03/25/2018 study. POS: HOME
--- NOTE | 2018-03-31 04:54 | DIS ---
DATE OF ADMISSION: 03/22/2018 DATE OF DISCHARGE: 03/30/2018 ADMISSION DIAGNOSES: Oxygen-dependent chronic obstructive pulmonary disease, status post healthcare-associated right lung pneumonia; atrial fibrillation; hypertension; edema; anxiety; physical deconditioning; chronic anemia. PROCEDURES: Chest x-ray on 03/25/2018 showed hyperexpanded lungs with chronic lung disease, particularly on the right side. No adverse changes since 2017. HOSPITAL COURSE: An 83-year-old female with advanced COPD, requiring oxygen and chronic steroid therapy use, followed by Dr. Luu who transitioned from [facility] in [place] where she completed antibiotics for a right lung pneumonia and COPD exacerbation. Of note, she has had increasing episodes of COPD exacerbations and admissions requiring antibiotic therapy. Due to her numerous admissions and advanced COPD, she notably has accompanying physical deconditioning; therefore, she was transitioned to our facility to participate with physical therapy and occupational therapy. The patient was able to do so to a certain degree; however, the amount of activity she could participate with was dependent on her pulmonary function for that time period. The patient has had chronic anemia and subsequent CBC here revealed low hemoglobin of 5.5 for which she received 2 units of packed red blood cells, increasing her hemoglobin up to a level of 9.2. Prior to discharge, her hemoglobin level is 8.3. Iron studies showed the patient not to be iron deficient and guaiac of her 3 separate stools were all negative; her B12 and folate were notably on the low side and thus she has been started on replacement therapy for these. The patient has intermittent exacerbations and edema affecting her lower extremities thus while she was here, Lasix was temporarily increased and she did receive a one-time dose of 5 mg metolazone and was able to return back to near euvolemia prior to her discharge. Due to the patient's compromised respiratory status and frequent admissions she was amenable to evaluation from hospice and she elected to have [facility] evaluate her secondary to her daughter in law working at that organization; they were able to evaluate her and she did meet criteria and thus at this time will be discharged to home with further care to be continued via [facility]. DISPOSITION: The patient will be discharged to her home setting today with further care to be provided via [facility]. DISCHARGE MEDICATIONS: New medicines will be folate 1 gram p.o. daily and cyanocobalamin 1000 mcg p.o. daily. She will otherwise resume her usual medications which include Tylenol 650 mg p.o. q.4 hours p.r.n., albuterol sulfate 1.25 mg nebs q.8 hours p.r.n., Xanax 0.25 mg p.o. b.i.d. p.r.n., Eliquis 5 mg p.o. b.i.d., aspirin 81 mg p.o. daily, atorvastatin 10 mg p.o. daily, Tessalon Perles 200 mg p.o. q.8 hours p.r.n., Benadryl 25 mg p.o. at bedtime p.r.n., famotidine 20 mg p.o. daily, flecainide 75 mg p.o. b.i.d., Flonase 1 spray to each nostril daily, Mucinex 1200 mg p.o. b.i.d., DuoNeb 3 mL q.4 hours p.r.n., magnesium hydroxide 30 mL p.o. daily p.r.n., Symbicort 2 puffs b.i.d., Zofran 4 mg q.6 hours p.r.n., spironolactone 25 mg p.o. b.i.d., verapamil 120 mg p.o. b.i.d., prednisone 20 mg p.o. daily. MTDD
== END 2018-03-30 15:45 | disposition hospice, home (50) | DRG 193 ==
LOC: BURMED 19:59
PROVIDERS: ADMIT Family Medicine; ATTEND Family Medicine
PROC: 30233N1 Transfusion of Nonautologous Red Blood Cells into Peripheral Vein, Percutaneous Approach (ICD-10-PCS; principal; 2018-03-25)
DX: J18.9 Pneumonia, unspecified organism (principal); J96.21 Acute and chronic respiratory failure with hypoxia; J44.1 Chronic obstructive pulmonary disease with (acute) exacerbation; J44.0 Chronic obstructive pulmonary disease with (acute) lower respiratory infection; I48.0 Paroxysmal atrial fibrillation; Z79.01 Long term (current) use of anticoagulants; I10 Essential (primary) hypertension; F41.9 Anxiety disorder, unspecified; I25.10 Atherosclerotic heart disease of native coronary artery without angina pectoris; E78.5 Hyperlipidemia, unspecified; Z87.891 Personal history of nicotine dependence; Z99.81 Dependence on supplemental oxygen; Z95.5 Presence of coronary angioplasty implant and graft; Z79.82 Long term (current) use of aspirin; Z88.5 Allergy status to narcotic agent; Z88.2 Allergy status to sulfonamides; Z88.8 Allergy status to other drugs, medicaments and biological substances; D50.0 Iron deficiency anemia secondary to blood loss (chronic); E53.8 Deficiency of other specified B group vitamins; Z51.5 Encounter for palliative care
CPT/HCPCS: 36415; 36430; 71046; 80053; 82274; 82565; 82607; 82728; 82746; 83540; 83550; 83880; 85007; 85014; 85018; 85025; 85027; 85049; 86850; 86900; 86901; 86922; 94640; A4216; G8978-GP-CM; G8979-GP-CK; G8987-GO-CJ; G8988-GO-CI; J1940; J7506; J7611; J7620; P9016; Q0162